=== PATIENT | female | born 1955 | race Caucasian/White ===

== ENCOUNTER 2018-11-16 22:21 | Inpatient (IN) | payer MEDICARE, MEDICAID ==
[~2018-11-16] VITALS: Ht 160 cm; Wt 84.1 kg
[2018-11-16] MEDS ORDERED: VASOTEC20 MG PO (22:30)
[2018-11-16] MEDS ORDERED: ZOLOFT25 MG PO (22:30)
[2018-11-16 22:53] LABS: BASOPHILS 0.2 % (0-2); EOSINOPHILS 0.1 % (0-7); HEMATOCRIT 27.9 % (36.0-48.0); HEMOGLOBIN 9.2 g/dL (12-16); IMMATURE GRANULOCYTES 0.5 % (0-5); LYMPHOCYTES 12.7 % (15-50); MEAN PLATELET VOLUME 10.8 fL (7.4-10.4); MONOCYTES 9.1 % (2-11); NEUTROPHILS 77.4 % (40-80); PLATELET COUNT 539 10x3/uL (130-400); RBC 3.17 10x6/uL (4.00-5.40); RDW 15.1 % (11.5-14.5); WBC 19.9 10x3/uL (4.8-10.8)
[2018-11-16 23:19] LABS: ALBUMIN 1.8 g/dL (3.4-5.0); ALKALINE PHOSPHATASE 66 U/L (46-116); ALT (SGPT) 19 U/L (10-68); BILIRUBIN - TOTAL 1.01 mg/dL (0.2-1.3); CALC OSMOLALITY 282 mosm/kg (275-300); CARBON DIOXIDE 21.9 mmol/L (21.0-32.0); CHLORIDE - SERUM 107 mmol/L (98-107); CREATININE - SERUM 0.7 mg/dL (0.6-1.3); GLUCOSE 116 mg/dL (74-106); POTASSIUM - SERUM 3.4 mmol/L (3.5-5.1); PROTEIN - SERUM 6.3 g/dL (6.4-8.2); SODIUM 141 mmol/L (136-145); UREA NITROGEN 14 mg/dL (7-18); eGFR NON AFRICAN AMERICAN 89 mL/min (90-120)
[2018-11-16 23:26] LABS: LIPASE 60 U/L (73-393); MAGNESIUM - SERUM 1.6 mg/dL (1.8-2.4); PRO BNP 165 pg/mL (0-125)
[2018-11-16 23:27] LABS: TROPONIN-I < 0.017 ng/mL (0.000-0.060)
[2018-11-16 23:48] VITALS: BP 97/54; BMI 29.1
[2018-11-17] VITALS (26 sets, daily range): BP systolic 80–138; BP diastolic 45–77; BMI 29.0
--- NOTE | 2018-11-17 00:10 | NUR ---
PT'S IV STARTED HAVING SOME SWELLING AROUND SITE, PT DENIED PAIN, IV BECOMING VERY POSTITIONAL, IV D/C AT THIS TIME WITH CATH INTACT. DRESSING PLACED OVER SITE, BLEEDING CONTROLLED AT THIS TIME.
--- NOTE | 2018-11-17 01:36 | NUR ---
IV RESITTED TO RIGHT EJ, BY ER PROVIDER.
[2018-11-17 02:51] LABS: HEMATOCRIT 32.1 % (36.0-48.0); HEMOGLOBIN 10.4 g/dL (12-16); MCHC 32.4 g/dL (31.0-37.0); MCV 89.4 fL (80.0-100.0); MEAN PLATELET VOLUME 11.3 fL (7.4-10.4); PLATELET COUNT 599 10x3/uL (130-400); RBC 3.59 10x6/uL (4.00-5.40); RDW 15.3 % (11.5-14.5); WBC 15.7 10x3/uL (4.8-10.8)
[2018-11-17 03:05] LABS: MAGNESIUM - SERUM 1.6 mg/dL (1.8-2.4); PHOSPHOROUS 2.7 mg/dL (2.5-4.9)
--- NOTE | 2018-11-17 03:16 | NUR ---
PT TAKEN TO CT SCAN
[2018-11-17 03:29] LABS: EOSINOPHILS 3 % (0-7); LYMPHOCYTES 11 % (15-50); MONOCYTES 4 % (2-11); NEUTROPHILS 79 % (40-80); PLATELET ESTIMATE INCREASED; PLATELET MORPHOLOGY GIANT PLTS PRESENT
--- NOTE | 2018-11-17 03:32 | NUR ---
PT BACK FROM CT
--- NOTE | 2018-11-17 05:00 | NUR ---
PT RESTING IN BED, RESP EFFORT LESS LABORED, PT DENIES COMPLAINTS AT THIS TIME. PT ADVISED THAT SHE IS FEELING SOME BETTER
[2018-11-17 09:01] LABS: APTT 26.3 SECONDS (22.8-39.4); INR 1.25 (0.85-1.17); PROTIME 15.2 SECONDS (11.6-15.0)
[2018-11-17 09:15] LABS: D-DIMER-QUANTITATIVE 4.2 ug/mLFEU (0.20-0.54)
--- NOTE | 2018-11-17 11:00 | NUR ---
RESTING AND CONTINUES TO HAVE TACHYPNEA AT 42 BPM, DENIES DISTRESS
--- NOTE | 2018-11-17 13:05 | NUR ---
TO RADIOLOGY FOR PENDING THORACENTESIS, AAO, WITH PERSONNEL X2
--- NOTE | 2018-11-17 14:30 | NUR ---
BACK FROM RADIOLOGY, CT TO LEFT POSTERIOR CHEST, 600 CC PURULENT DRAINAGE TO CONTAINER, VS: BP 101/63, MAP79, 123 HR O26L HF NC, SAT 97%, RESP 47, STATES, SHE FEELS LIKE SHE CAN BREATH A LITTLE BETTER, TEMP 100.1, NOTIFIED CINDY KAHN, NEW ORDERS GIVEN, FOR TEMP OVER 101
--- NOTE | 2018-11-17 15:00 | NUR ---
REASSESSMENT COMPLETED PER FLOWSHEET, 600 CC PURULENT DRAINGAGE TO CT CONTAINER, CONTINUES TO HAVE TACHYPNEA, 37 BPM, NOOTHER ACUTE CHANGE FROM PREVIOUS
--- NOTE | 2018-11-17 15:50 | NUR ---
CATH HOLLY PLACED, INSTILLED IN CT BY TESS WITH RADIOLOGY AND PORT CLOSED
--- NOTE | 2018-11-17 16:09 | NUR ---
SPOUSE AT BEDSIDE, STATUS UPDATED, NO NEEDS AT THIS TIME
--- NOTE | 2018-11-17 16:34 | MORECARE ---
CASE MANAGEMENT DISCHARGE SUMMARY PATIENT: ANY LANDIS UNIT: [id number] ADM DATE: 11/16/18 AGE: 63 : 53 SEX: F ROOM/BED: D.2308 AUTHOR: BRIDGETTE TORRES PHYSICIAN: REFERRING PHYSICIAN: CARLOS ALLISON MD DATE OF SERVICE: 11/17/18 Discharge Plan Patient Name: ANY LANDIS [facility] [facility] 1955 Planned Disposition: Home Anticipated Discharge Date: Discharge Date: Expected LOS: Initial Reviewer: [email or web address] Initial Review Date: 11/16/2018 Generated: 11/17/18 5:34 pm DCPIA - Discharge Planning Initial Assessment Updated by [email or web address]: Rivka Higuera on 11/17/18 4:29 pm * Is the patient Alert and Oriented? Yes * How many steps to enter\exit or inside your home? * PCP VERONIKA BAIRD * Pharmacy [facility] * Preadmission Environment Home with Family * ADLs Independent * Equipment Walker * List name and contact numbers for known caregivers / representatives who currently or will assist patient after discharge: KATHARINE MARSHALL [facility]- [phone] * Verbal permission to speak to the caregivers and representatives has been obtained from the patient. Yes * Community resources currently utilized None * Additional services required to return to the preadmission environment? No * Can the patient safely return to the preadmission environment? Yes * Has this patient been hospitalized within the prior 30 days at any hospital? Yes Patient Name: ANY LANDIS Page [id number] at 1634 All edits/amendments must be made on the electronic document DICTATION DATE: 11/17/18 1634 MIDDLE SCHOOL HISTORY TEACHER: SACHA 11/17/18 1634 RPT#: [id number] DC DATE: STATUS: ADM IN [facility] [address] [place] [address] END OF REPORT
--- NOTE | 2018-11-17 16:45 | MORECARE ---
CASE MANAGEMENT DISCHARGE SUMMARY PATIENT: ANY LANDIS UNIT: [id number] ADM DATE: 11/16/18 AGE: 63 : 53 SEX: F ROOM/BED: D.2308 AUTHOR: MELISSA,DOC PHYSICIAN: REFERRING PHYSICIAN: CRALOS ALLISON MD DATE OF SERVICE: 11/17/18 Discharge Plan Patient Name: ANY LANDIS Facility: [facility]:[place] : 1955 Planned Disposition: Home Anticipated Discharge Date: Discharge Date: Expected LOS: Initial Reviewer: [email or web address] Initial Review Date: 11/16/2018 Generated: 11/17/18 5:45 pm Comments DCP- Discharge Planning Updated by [email or web address]: Rivka Higuera on 11/17/18 3:[address] Patient Name: ANY LANDIS Admission Status: ER Accout number: [id number] Admission Date: 11-16-2018 : 1955 Admission Diagnosis: Attending: CARLOS ALLISON Current LOS: 1 Anticipated DC Date: Planned Disposition: Home Primary Insurance: [facility] [employer] Discharge Planning Comments: CM met with patient and significant other Katharine at bedside after explaining CM role and obtaining verbal consent. Patient lives at home with Katharine and plans to return there upon discharge. Patient feels this would be a safe discharge. Patient states that she has a walker at home but no other medical equipment. Patient states that she doesn't have home health or any other community resources in use prior to admission. Patient denies any discharge needs at this time. Patient states she will have family drive her home upon discharge. CM will continue to follow and assist as needed with discharge planning / needs. Balance Weigher: Rivka Higuera DCPIA - Discharge Planning Initial Assessment Updated by [email or web address]: Rivka Higuera on 11/17/18 4:29 pm * Is the patient Alert and Oriented? Yes * How many steps to enter\exit or inside your home? * PCP VERONIKA BAIRD * Pharmacy [facility] * Preadmission Environment Home with Family * ADLs Independent * Equipment Walker * List name and contact numbers for known caregivers / representatives who currently or will assist patient after discharge: KATHARINE MARSHALL [facility]- [phone] * Verbal permission to speak to the caregivers and representatives has been obtained from the patient. Yes * Community resources currently utilized None * Additional services required to return to the preadmission environment? No * Can the patient safely return to the preadmission environment? Yes * Has this patient been hospitalized within the prior 30 days at any hospital? Yes Last DP export: 11/17/18 3:34 p Patient Name: ANY LANDIS Page 11617 at 1645 All edits/amendments must be made on the electronic document DICTATION DATE: 11/17/181644 MAIL CENSOR: SACHA 11/17/181644 RPT#: [id number] DC DATE: STATUS: ADM IN [facility] [address] [place] [address] END OF REPORT
[2018-11-17 16:46] LABS: PROTEIN - BODY FLUID 4.3 G/DL
--- NOTE | 2018-11-17 16:50 | NUR ---
CT PORT REOPENED AND CT PLACE TO SUCTION PER ORDER
--- NOTE | 2018-11-17 17:35 | NUR ---
16FR RODRIGUEZ PLACED PER ORDER PROCEDURE TOLERATED WITHOUT DIFFICULTY, 700 CC URINE TO CANISTER AND BAG, AFFIXED TO SIDE OF LEG WITH STATLOCK. TOLERATED PROCEDURE WITHOUT DIFFICULTY
[2018-11-17 20:38] LABS: MACROPHAGES BF 6 %; MESOTHELIALS BF 2 %; NEUT - BF 81 %
[2018-11-18] VITALS (23 sets, daily range): BP systolic 103–152; BP diastolic 58–95
--- NOTE | 2018-11-18 01:09 | NUR ---
PRN MORPHINE 1MG ADMINISTERED VIA SIVP PER MD ORDER/PT COMPLAINT OF INCISIONAL PAIN 11/29 ON VPS. ALSO REPOSITIONED FOR COMFORT SUPPORT WITH PILLOWS, DRAINAGE FROM CT REMAINS PURULENT AND THICK.
[2018-11-18 03:28] LABS: BASOPHILS 0.1 % (0-2); EOSINOPHILS 0 % (0-7); HEMATOCRIT 26.9 % (36.0-48.0); HEMOGLOBIN 8.7 g/dL (12-16); IMMATURE GRANULOCYTES 0.8 % (0-5); LYMPHOCYTES 12.7 % (15-50); MCH 28.2 pg (26.0-34.0); MCHC 32.3 g/dL (31.0-37.0); MCV 87.3 fL (80.0-100.0); MEAN PLATELET VOLUME 10.8 fL (7.4-10.4); MONOCYTES 10.9 % (2-11); NEUTROPHILS 75.5 % (40-80); PLATELET COUNT 388 10x3/uL (130-400); RBC 3.08 10x6/uL (4.00-5.40); RDW 15.3 % (11.5-14.5); WBC 21.1 10x3/uL (4.8-10.8)
--- NOTE | 2018-11-18 03:30 | NUR ---
REASSESSMENT PER FLOWSHEET, NO ACUTE CHANGES, VSS, POSITIONED FOR COMFORT SUPPORTED WITH PILLOWS.
[2018-11-18 03:41] LABS: ALBUMIN 1.4 g/dL (3.4-5.0); ALKALINE PHOSPHATASE 50 U/L (46-116); ALT (SGPT) 18 U/L (10-68); BILIRUBIN - TOTAL 0.79 mg/dL (0.2-1.3); CALCIUM 8.2 mg/dL (8.5-10.1); CARBON DIOXIDE 24.1 mmol/L (21.0-32.0); CHLORIDE - SERUM 105 mmol/L (98-107); GLUCOSE 155 mg/dL (74-106); LDH 153 U/L (81-234); MAGNESIUM - SERUM 1.8 mg/dL (1.8-2.4); POTASSIUM - SERUM 3.3 mmol/L (3.5-5.1); PROTEIN - SERUM 5.6 g/dL (6.4-8.2); SODIUM 137 mmol/L (136-145)
[2018-11-18 03:51] LABS: CALC OSMOLALITY 275 mosm/kg (275-300); CREATININE - SERUM 0.5 mg/dL (0.6-1.3); PHOSPHOROUS 1.7 mg/dL (2.5-4.9); UREA NITROGEN 10 mg/dL (7-18); eGFR NON AFRICAN AMERICAN > 90 mL/min (90-120)
[2018-11-18 05:23] LABS: APPEARANCE HAZY (CLEAR); COLOR YELLOW (YELLOW); SPECIFIC GRAVITY 1.015 (1.005-1.020)
[2018-11-18 05:24] LABS: BACTERIA NONE SEEN /hpf (NONE SEEN); BILIRUBIN NEGATIVE (NEGATIVE); EPITHELIAL CELLS NSEEN /hpf (0-5); GLUCOSE NEGATIVE (NEGATIVE); KETONE SMALL mg/dL (NEGATIVE); NITRITE NEGATIVE (NEGATIVE); PROTEIN NEGATIVE (NEGATIVE); RED CELLS - URINE 0-5 /hpf (0-5); WHITE CELLS - URINE RARE /hpf (0-5)
--- NOTE | 2018-11-18 05:24 | NUR ---
NO VISITORS PRESENT AT THIS TIME, PT RESTING WITH EYES CLOSED.
--- NOTE | 2018-11-18 09:44 | NUR ---
CL BREAKFAST TRAY SERVED AND PT TOOK IN 100% OF CL WITH OUT DIFFICULTY. CO/O PAIN TO CHEST TUBE SITE AND REPORTS CHEST DISCOMFORT DUE TO COUGH. MS GIVEN ORDERED WITH ADEQUATE R/O PAIN VERB BY PT.
--- NOTE | 2018-11-18 13:37 | NUR ---
ASSISTED OOB, BATH AND LINENS CHANGED.
[2018-11-18 19:07] LABS: ACID FAST SMEAR Negative (()); AFB SPECIMEN PROCESSING Concentration (())
[2018-11-19] VITALS (25 sets, daily range): BP systolic 95–127; BP diastolic 52–86
[2018-11-19 03:30] LABS: HEMATOCRIT 26.4 % (36.0-48.0); HEMOGLOBIN 8.5 g/dL (12-16); MCH 28.2 pg (26.0-34.0); MCHC 32.2 g/dL (31.0-37.0); MCV 87.7 fL (80.0-100.0); MEAN PLATELET VOLUME 10.8 fL (7.4-10.4); PLATELET COUNT 495 10x3/uL (130-400); RBC 3.01 10x6/uL (4.00-5.40); RDW 15.6 % (11.5-14.5); WBC 24.2 10x3/uL (4.8-10.8)
--- NOTE | 2018-11-19 03:36 | NUR ---
DR CARCAMO CALLED REGARDING PT RHYTHM CHANGE, CURRENTLY ATRIAL FIB IN THE 170'S, ORDERS RECIEVED.
[2018-11-19 03:55] LABS: EOSINOPHILS 1 % (0-7); LYMPHOCYTES 14 % (15-50); MONOCYTES 8 % (2-11); NEUTROPHILS 73 % (40-80); PLATELET ESTIMATE INCREASED; PLATELET MORPHOLOGY GIANT PLTS PRESENT
[2018-11-19 03:56] LABS: ALBUMIN 1.4 g/dL (3.4-5.0); ALKALINE PHOSPHATASE 51 U/L (46-116); BILIRUBIN - TOTAL 0.66 mg/dL (0.2-1.3); CALCIUM 8.1 mg/dL (8.5-10.1); CARBON DIOXIDE 25.3 mmol/L (21.0-32.0); CHLORIDE - SERUM 103 mmol/L (98-107); CREATININE - SERUM 0.6 mg/dL (0.6-1.3); GLUCOSE 111 mg/dL (74-106); MAGNESIUM - SERUM 1.8 mg/dL (1.8-2.4); PHOSPHOROUS 2.1 mg/dL (2.5-4.9); PROTEIN - SERUM 5.3 g/dL (6.4-8.2); SODIUM 135 mmol/L (136-145); VANCOMYCIN - TROUGH 12.5 ug/mL (10.0-20.0); eGFR NON AFRICAN AMERICAN > 90 mL/min (90-120)
[2018-11-19 03:57] LABS: CALC OSMOLALITY 267 mosm/kg (275-300); UREA NITROGEN 4 mg/dL (7-18)
[2018-11-19 03:58] LABS: ALT (SGPT) 25 U/L (10-68); POTASSIUM - SERUM 2.8 mmol/L (3.5-5.1)
[2018-11-19 04:25] LABS: THYROID STIMULATING HORMONE 2.15 uIU/mL (0.36-3.74)
[2018-11-19 04:26] LABS: TROPONIN-I < 0.017 ng/mL (0.000-0.060)
--- NOTE | 2018-11-19 08:36 | NUR ---
AFIB RVR WITH PLACING PT ON BED DICKSON. HR 140 TO 160. EKG SHOWS AFIV RVR. PAGED DR CARCAMO, REC'D CALL BACK. CARDIZEM GTT RATE CHANGED FROM 10 TO 15MG/H.
[2018-11-19 11:07] LABS: IMMUNOGLOBULIN A 243 mg/dL (87-352); IMMUNOGLOBULIN G 1118 mg/dL (700-1600)
--- NOTE | 2018-11-19 11:19 | NUR ---
DR KIM NOTIFIED OF CONSULT. DR KIM HERE ON ROUNDS. DR CARCAMO HERE WELL.
--- NOTE | 2018-11-19 13:33 | NUR ---
NSR ON CM. VSS. CT CANNISTER FULL. CHANGED CT THORACEAL CHAMBER CANNISTER PER STERAL TECH. PT JOSIAH WELL.
--- NOTE | 2018-11-19 18:02 | NUR ---
KCL REPLACED PER ELECTROLYTE PROTOCOL.
--- NOTE | 2018-11-19 19:00 | NUR ---
RECIEVED IN BED RESTING WITH EYES OPEN. STATES PAIN IN UPPER ABDOMEN AT A 4 AT THIS TIME. IN GOOD SPIRITS. CHEST TUBE INTACT. IV INFUSING. CALL LIGHT IN REACH.
--- NOTE | 2018-11-19 23:34 | NUR ---
RESTING IN BED WITH EYES CLOSED. NO SIGNS OF DISTRESS. IV INFUSING. CALL LIGHT IN REACH.
[2018-11-20] VITALS (23 sets, daily range): BP systolic 110–144; BP diastolic 44–90
--- NOTE | 2018-11-20 03:31 | NUR ---
RESTING IN BED WITH EYES CLOSED. NO SIGNS OF DISTRESS. CALL LIGHT IN REACH.
[2018-11-20 03:50] LABS: BASOPHILS 0.2 % (0-2); EOSINOPHILS 0.6 % (0-7); HEMATOCRIT 27.9 % (36.0-48.0); IMMATURE GRANULOCYTES 1.7 % (0-5); LYMPHOCYTES 9.9 % (15-50); MCH 28.1 pg (26.0-34.0); MCHC 32.3 g/dL (31.0-37.0); MCV 87.2 fL (80.0-100.0); MEAN PLATELET VOLUME 10.8 fL (7.4-10.4); MONOCYTES 8.2 % (2-11); NEUTROPHILS 79.4 % (40-80); PLATELET COUNT 568 10x3/uL (130-400); RDW 15.5 % (11.5-14.5)
[2018-11-20 04:07] LABS: ALBUMIN 1.7 g/dL (3.4-5.0); ALKALINE PHOSPHATASE 65 U/L (46-116); BILIRUBIN - TOTAL 0.79 mg/dL (0.2-1.3); CALC OSMOLALITY 268 mosm/kg (275-300); CALCIUM 8.2 mg/dL (8.5-10.1); CARBON DIOXIDE 28.1 mmol/L (21.0-32.0); CHLORIDE - SERUM 103 mmol/L (98-107); GLUCOSE 104 mg/dL (74-106); MAGNESIUM - SERUM 1.7 mg/dL (1.8-2.4); PHOSPHOROUS 2.4 mg/dL (2.5-4.9); POTASSIUM - SERUM 3.6 mmol/L (3.5-5.1); PROTEIN - SERUM 5.4 g/dL (6.4-8.2); SODIUM 136 mmol/L (136-145); UREA NITROGEN 4 mg/dL (7-18)
[2018-11-20 04:25] LABS: ALT (SGPT) 62 U/L (10-68); CREATININE - SERUM 0.4 mg/dL (0.6-1.3); eGFR NON AFRICAN AMERICAN > 90 mL/min (90-120)
--- NOTE | 2018-11-20 04:53 | NUR ---
RESTING IN BED WITH EYES CLOSED. IV INFUSING. NO SIGNS OF DISTRESS. CALL LIGHT IN REACH
--- NOTE | 2018-11-20 06:26 | NUR ---
RESTING IN BED WITH EYES OPEN. DENIES PAIN AT THIS TIME. IV INFUSING. CALL LIGHT IN REACH
--- NOTE | 2018-11-20 07:00 | NUR ---
PATIENT ALERT AND ORIENTED. CHEST TUBE WNL. ORAL CARE PROVIDED AT THIS TIME. PATIENT AFEBRILE. ASSESSMENT COMPLETED. VSS. PATIENT REPORTED NAUSEA. WILL CONTINUE TO MONITOR
--- NOTE | 2018-11-20 07:30 | NUR ---
DECREASE CARDIZIEM GTT PER DR. KIM
--- NOTE | 2018-11-20 08:45 | NUR ---
PATIENT TAKEN TO CT.
--- NOTE | 2018-11-20 09:00 | NUR ---
PATIENT REFUSED CHG BATH AT TIME DUE TO PAIN.
--- NOTE | 2018-11-20 09:43 | NUR ---
NUTRITION F/U PT NPO FOR TEST. STATES SHE IS HUNGRY AND WILL BE READY TO EAT WHEN DIET RESUMED. WILL CONTINUE TO MONITOR PO INTAKE, PT PROGRESS. RD FOLLOWING
--- NOTE | 2018-11-20 09:50 | CN ---
PATIENT NAME:ANY AREVALO MEDICAL RECORD: [id number] : 51 LOCATION:[id number] ADMIT DATE: 11/16/18 ACCOUNT: [id number] CONSULTING PHYSICIAN: FLAVIO KIM MD REFERRING PHYSICIAN: CARLOS ALLISON MD DATE OF CONSULTATION: 11/19/2018 CARDIOLOGY CONSULT DIAGNOSES: 1. Atrial fibrillation. 2. Tachycardia. 3. Hypertension. 4. Pneumonia. 5. Shortness of breath and dyspnea on exertion. HISTORY OF PRESENT ILLNESS: Mrs. Arevalo presents from [facility] with shortness of breath and dyspnea on exertion, found to have left lower lobe pneumonia. Initially, she was in sinus rhythm. She does not have history of atrial fibrillation. She is now in atrial fibrillation with rapid ventricular response, heart rates in the 130s. PHYSICAL EXAMINATION: GENERAL APPEARANCE: Well-nourished, well-developed, appears stated age. Level of distress, comfortable. PSYCHIATRIC: Mental status, alert, normal affect. Orientation, oriented to time, place and person. EYES: Lids and conjunctiva, noninjected. No discharge, no pallor. ENT: Lips, teeth, gums, normal dentition. Oropharynx, no cyanosis, no pallor. NECK: Carotid arteries, bilateral normal upstroke, no bruits, no thrills. JUGULAR VEINS: No jugular venous pressure or distention. CERVICAL LYMPH NODES: Nontender, nonenlarged. THYROID: Not enlarged. Nontender. No nodules. LUNGS: Respiratory effort, unlabored. CHEST: Normal curvature. No thoracic deformity. No chest wall tenderness. Percussion, resonant. Auscultation, clear. No wheezes, no rales, no rhonchi. CARDIOVASCULAR: Precordial exam, nondisplaced. No heaves or pericardial thrills. Rate and rhythm, regular. Heart sounds, normal S1, normal S2. No S3, no gallop, no rub. Systolic murmur, not heard. Diastolic murmur, not heard. EXTREMITIES: No cyanosis, no edema. Peripheral pulses, full and equal in all extremities, except as noted. No bruits appreciated. ABDOMEN: Soft, nondistended. Normal aorta. No bruit. Nontender. No masses. Liver, nontender, no hepatomegaly. Spleen, nontender, no splenomegaly. MUSCULOSKELETAL: No joint tenderness. No joint swelling. No erythema. NEUROLOGICAL: Normal gait, normal strength, normal tone. SKIN: Warm and dry. OVERALL IMPRESSION: Atrial fibrillation with rapid ventricular response. At this time, we will start her on sotalol 80 mg b.i.d. and get an echocardiogram. Further care depends upon results with the sotalol. TRANSINT:[id number] Voice Confirmation ID: [id number] DOCUMENT ID: [id number] CONSULT REPORT [id number] ANY AREVALO, FLAVIO CELIS at 0950 CC: [id number] DICTATION DATE: 11/19/18 1118 CLAIMS ADJUSTER SUPERVISOR: 11/19/18 1738 ADM IN [facility] [address] [place] [id number]
--- NOTE | 2018-11-20 10:57 | NUR ---
DR CARCAMO AT BEDSIDE. UPDATE GIVEN.
--- NOTE | 2018-11-20 13:00 | NUR ---
PATIENT RESTING. VSS. CALL LIGHT WITHIN REACH. WILL CONTINUE TO MONITOR.
--- NOTE | 2018-11-20 13:00 | NUR ---
PATIENT HAD 1 BM. PATIENT RESTING. VSS. WILL CONTINUE TO MONITOR.
--- NOTE | 2018-11-20 15:00 | NUR ---
PATIENT ON PHONE WITH FAMILY. MUNIR SET UP PASSWORD TO BE "PASSWORD"
--- NOTE | 2018-11-20 17:00 | NUR ---
PATIENT ON PHONE WITH FAMILY. VSS. WILL CONTINUE TO MONIOTR. CALL LIGHT WITHIN REACH.
[2018-11-20 17:08] LABS: FUNGUS STAIN Final report (())
--- NOTE | 2018-11-20 22:18 | NUR ---
PATIENT ALERT, ORIENTED, PLEASANT, VOICES NEEDS, NO DISTRESS
[2018-11-21] VITALS (22 sets, daily range): BP systolic 113–151; BP diastolic 70–102; Ht 160 cm; Wt 84.1 kg
[2018-11-21 04:50] LABS: BASOPHILS 0.2 % (0-2); EOSINOPHILS 0.6 % (0-7); HEMATOCRIT 28.1 % (36.0-48.0); HEMOGLOBIN 9.3 g/dL (12-16); IMMATURE GRANULOCYTES 3.7 % (0-5); LYMPHOCYTES 11.8 % (15-50); MCH 28.4 pg (26.0-34.0); MCHC 33.1 g/dL (31.0-37.0); MCV 85.7 fL (80.0-100.0); MEAN PLATELET VOLUME 10.6 fL (7.4-10.4); MONOCYTES 10.3 % (2-11); NEUTROPHILS 73.4 % (40-80); PLATELET COUNT 616 10x3/uL (130-400); RBC 3.28 10x6/uL (4.00-5.40); RDW 15.4 % (11.5-14.5); WBC 15.9 10x3/uL (4.8-10.8)
[2018-11-21 05:07] LABS: ALBUMIN 1.7 g/dL (3.4-5.0); ALKALINE PHOSPHATASE 77 U/L (46-116); BILIRUBIN - TOTAL 0.53 mg/dL (0.2-1.3); CALC OSMOLALITY 269 mosm/kg (275-300); CALCIUM 7.9 mg/dL (8.5-10.1); CARBON DIOXIDE 27.5 mmol/L (21.0-32.0); CHLORIDE - SERUM 102 mmol/L (98-107); CREATININE - SERUM 0.5 mg/dL (0.6-1.3); GLUCOSE 110 mg/dL (74-106); MAGNESIUM - SERUM 1.8 mg/dL (1.8-2.4); PHOSPHOROUS 2.7 mg/dL (2.5-4.9); PROTEIN - SERUM 5.4 g/dL (6.4-8.2); SODIUM 136 mmol/L (136-145); UREA NITROGEN 5 mg/dL (7-18); eGFR NON AFRICAN AMERICAN > 90 mL/min (90-120)
[2018-11-21 05:09] LABS: ALT (SGPT) 88 U/L (10-68)
--- NOTE | 2018-11-21 06:05 | NUR ---
pt alert with no c/o at this time, vss, iv vanc infusing
--- NOTE | 2018-11-21 07:19 | NUR ---
PATIENT RESTING. VSS. REPORT RECIEVED FROM BENNETT. WILL CONTINUE TO MONITOR POTASSIUM. CALL LIGHT WITHIN REACH. BED LOW AND LOCKED. ASSESSMENT COMPLETED.
--- NOTE | 2018-11-21 09:26 | NUR ---
DR. DUONG CONSULT CALLED TO [facility] AT THIS TIME, NO NEW ORDERS RECIEVED
--- NOTE | 2018-11-21 10:10 | NUR ---
DR DUONG AT BEDSIDE UPDATE GIVEN
--- NOTE | 2018-11-21 13:00 | NUR ---
PATIENT REFUSED BATH AT THIS TIME. WILL CONTINUE TO MONITOR
--- NOTE | 2018-11-21 15:00 | NUR ---
patient resting. vss. no changes noted. will continue to monitor
--- NOTE | 2018-11-21 16:11 | NUR ---
PATIENT BATHED HERSELF AT THIS TIME.
--- NOTE | 2018-11-21 17:00 | NUR ---
patient resting. family at bedside. vss. will continue to monitor
--- NOTE | 2018-11-21 19:20 | NUR ---
PT ALERT, ORIENTED WATCHING TV, MEDICATED FOR PAIN
--- NOTE | 2018-11-21 21:30 | NUR ---
PATIENT ALERT WITH NO C/O
--- NOTE | 2018-11-21 23:40 | NUR ---
pt c/o SOB, SPO2@92%, INCREASED O2 TO 3L VIA N/C, MEDICATED FOR PAIN
[2018-11-22] VITALS (24 sets, daily range): BP systolic 125–181; BP diastolic 69–94
--- NOTE | 2018-11-22 02:05 | NUR ---
PATIENT SLEEPING WITH NO DISTRESS, VITALS STABLE
--- NOTE | 2018-11-22 03:00 | NUR ---
pt remains asleep, vitals stable, cont with bilat crackles in upper lobes
[2018-11-22 05:02] LABS: ALKALINE PHOSPHATASE 64 U/L (46-116); BILIRUBIN - TOTAL 0.51 mg/dL (0.2-1.3); CALC OSMOLALITY 270 mosm/kg (275-300); CALCIUM 7.9 mg/dL (8.5-10.1); CARBON DIOXIDE 29.4 mmol/L (21.0-32.0); CHLORIDE - SERUM 102 mmol/L (98-107); CREATININE - SERUM 0.5 mg/dL (0.6-1.3); GLUCOSE 104 mg/dL (74-106); MAGNESIUM - SERUM 1.8 mg/dL (1.8-2.4); PHOSPHOROUS 2.7 mg/dL (2.5-4.9); POTASSIUM - SERUM 3.7 mmol/L (3.5-5.1); PROTEIN - SERUM 5.7 g/dL (6.4-8.2); SODIUM 137 mmol/L (136-145); UREA NITROGEN 5 mg/dL (7-18); eGFR NON AFRICAN AMERICAN > 90 mL/min (90-120)
[2018-11-22 05:14] LABS: ALT (SGPT) 65 U/L (10-68)
--- NOTE | 2018-11-22 05:15 | NUR ---
pt awake with no c/o
[2018-11-22 05:30] LABS: BASOPHILS 0.3 % (0-2); EOSINOPHILS 0.8 % (0-7); HEMATOCRIT 28.3 % (36.0-48.0); HEMOGLOBIN 9.3 g/dL (12-16); IMMATURE GRANULOCYTES 3.6 % (0-5); LYMPHOCYTES 13.4 % (15-50); MCH 28.3 pg (26.0-34.0); MCHC 32.9 g/dL (31.0-37.0); MEAN PLATELET VOLUME 10.8 fL (7.4-10.4); MONOCYTES 10.3 % (2-11); NEUTROPHILS 71.6 % (40-80); PLATELET COUNT 633 10x3/uL (130-400); RBC 3.29 10x6/uL (4.00-5.40); RDW 15.6 % (11.5-14.5); WBC 17.3 10x3/uL (4.8-10.8)
--- NOTE | 2018-11-22 06:17 | NUR ---
pt arouses easily, has nonproductive cough with bilat crackles, o2 remains at 3liters via n/c, vitals stable
--- NOTE | 2018-11-22 07:09 | NUR ---
RESPIRATORY AT BEDSIDE. REPORT RECIEVED FROM BENNETT. LEIGHA. PATIENT WBC HAS INCREASED. NO OTHER CHANGES NOTED. ASSESMENT COMPLTED AT THIS TIME. CALL LIGHT WITHIN REACH. WILL CONTINUE TO MONITOR
--- NOTE | 2018-11-22 09:00 | NUR ---
patient resting. complete linen change provided. will continue to monitor
--- NOTE | 2018-11-22 09:38 | NUR ---
NUTRITION F/U PT TOLERATING REG DIET. NURSING REPORTS GOOD PO INTAKE RECENT MEALS. WILL CONTINUE TO PROVIDE DIET, HONOR FOOD PREFERENCES. RD FOLLOWING
--- NOTE | 2018-11-22 11:00 | NUR ---
DR CARCAMO AT [facility]. UPDATE GIVEN.
--- NOTE | 2018-11-22 11:35 | NUR ---
PATIENT ON CHAIR. VSS. WILL CONTINUE TO MONITOR
--- NOTE | 2018-11-22 13:08 | NUR ---
physical thearpy at bedside. patient still in chair. vss. will continue to monitor
[2018-11-22 14:00] LABS: HEMATOCRIT 29.7 % (36.0-48.0); HEMOGLOBIN 9.6 g/dL (12-16); MCH 28.2 pg (26.0-34.0); MCHC 32.3 g/dL (31.0-37.0); MCV 87.4 fL (80.0-100.0); MEAN PLATELET VOLUME 10.3 fL (7.4-10.4); RBC 3.4 10x6/uL (4.00-5.40); RDW 15.9 % (11.5-14.5); WBC 16.5 10x3/uL (4.8-10.8)
--- NOTE | 2018-11-22 14:07 | NUR ---
Rehab Note- Acute Inpatient Rehab prescreen order received. The patient has [facility] insurance and will require a PreAuth prior to an acute rehab stay. SHe has a pending OT Eval & didn't do much with her PT Eval- these will be needed for her PreAuth. SHe also seems to continue to have an acute workup at this time w/ CT & CT trade out. Will continue to follow the patient at this time. Thank you for this referral! Rose Nunes RN Clinical Liaison, [facility]
[2018-11-22 14:10] LABS: APTT 34.5 SECONDS (22.8-39.4); INR 1.13 (0.85-1.17)
[2018-11-22 14:15] LABS: ALBUMIN 2.2 g/dL (3.4-5.0); ALKALINE PHOSPHATASE 70 U/L (46-116); ALT (SGPT) 64 U/L (10-68); BILIRUBIN - TOTAL 0.51 mg/dL (0.2-1.3); CALC OSMOLALITY 272 mosm/kg (275-300); CALCIUM 7.8 mg/dL (8.5-10.1); CARBON DIOXIDE 31.6 mmol/L (21.0-32.0); CHLORIDE - SERUM 102 mmol/L (98-107); CREATININE - SERUM 0.5 mg/dL (0.6-1.3); GLUCOSE 117 mg/dL (74-106); POTASSIUM - SERUM 3.6 mmol/L (3.5-5.1); PROTEIN - SERUM 6.2 g/dL (6.4-8.2); SODIUM 137 mmol/L (136-145); UREA NITROGEN 6 mg/dL (7-18); eGFR NON AFRICAN AMERICAN > 90 mL/min (90-120)
--- NOTE | 2018-11-22 15:00 | NUR ---
CHG BATH GIVEN. RODRIGUEZ CARE PERFORMED. PATIENT BACK IN BED. VSS. WILL CONTINUE TO MONITOR
--- NOTE | 2018-11-22 17:00 | NUR ---
PATIENT SITTING ON EDGE OF BED EATING DINNER. VSS. NO CHANGES NOTED. CONSETS OBTAINED. WILL CONTINUE TO MONITOR
--- NOTE | 2018-11-22 19:02 | NUR ---
midline dressing changed at this time
--- NOTE | 2018-11-22 20:00 | NUR ---
PT IS AWAKE AND ALERT. DENIES PAIN. DO SIGN OF DISTRESS. L CHEST TUBE TO 20 CM SUCTION. NO LEAK NOTED. PURLENT DRAINAGE NOTED. DENIES NEEDS
[2018-11-23] VITALS (22 sets, daily range): BP systolic 112–153; BP diastolic 37–82
[2018-11-23 04:59] LABS: APTT 35.5 SECONDS (22.8-39.4); INR 1.18 (0.85-1.17); PROTIME 14.5 SECONDS (11.6-15.0)
[2018-11-23 05:05] LABS: ALBUMIN 2.1 g/dL (3.4-5.0); ALKALINE PHOSPHATASE 61 U/L (46-116); ALT (SGPT) 49 U/L (10-68); BILIRUBIN - TOTAL 0.58 mg/dL (0.2-1.3); CALC OSMOLALITY 269 mosm/kg (275-300); CALCIUM 8.3 mg/dL (8.5-10.1); CARBON DIOXIDE 28.4 mmol/L (21.0-32.0); CHLORIDE - SERUM 102 mmol/L (98-107); CREATININE - SERUM 0.5 mg/dL (0.6-1.3); GLUCOSE 103 mg/dL (74-106); POTASSIUM - SERUM 3.7 mmol/L (3.5-5.1); PROTEIN - SERUM 5.8 g/dL (6.4-8.2); SODIUM 136 mmol/L (136-145); UREA NITROGEN 6 mg/dL (7-18); eGFR NON AFRICAN AMERICAN > 90 mL/min (90-120)
[2018-11-23 05:09] LABS: BASOPHILS 0.3 % (0-2); EOSINOPHILS 1.7 % (0-7); HEMATOCRIT 27.1 % (36.0-48.0); HEMOGLOBIN 8.9 g/dL (12-16); IMMATURE GRANULOCYTES 2.9 % (0-5); LYMPHOCYTES 17.1 % (15-50); MCH 28.1 pg (26.0-34.0); MCHC 32.8 g/dL (31.0-37.0); MCV 85.5 fL (80.0-100.0); MEAN PLATELET VOLUME 10.4 fL (7.4-10.4); PLATELET COUNT 597 10x3/uL (130-400); RBC 3.17 10x6/uL (4.00-5.40); RDW 15.8 % (11.5-14.5); WBC 14.1 10x3/uL (4.8-10.8)
--- NOTE | 2018-11-23 06:15 | NUR ---
TO RADIOLOGY FOR PA/LAT VIA WHEELCHAIR.
--- NOTE | 2018-11-23 07:00 | NUR ---
REPORT RECEVIED FROM THE OFF GOING RN. SEE ASSESSMENT IN THE PTS FLOW SHEET. VSS AT THIS TIME. CALL LIGHT IN [facility]. WILL CONT POC.
--- NOTE | 2018-11-23 10:11 | NUR ---
PHYSICAL THEARPY ASSISTED THE PT OOB AND INTO THE BEDSIDE CHAIR. TOLERAETD WELL. VSS. WILL CONT POC.
--- NOTE | 2018-11-23 11:48 | NUR ---
OT NOTE: PT DOING WELL; CONCERNED ABOUT SURGERY SHE IS HAVING TOMORROW. ABLE TO PERFORM ALL GROOMING, FEEDING, AND UE DRESSING WITH SET UP; BED MOB WITH SPV; TRANSFERS WITH MIN ASSIST FROM BED TO CHAIR. ROSEY LLAMAS, OTR/L
[2018-11-23 12:08] LABS: IMMUNOGLOBULIN E 41 IU/mL (6-495)
--- NOTE | 2018-11-23 14:00 | NUR ---
PT ASSISTED HER SELF BACK TO BED. VSS AT THIS TIME. NO C/O PAIN. CALL LIGHT IN REACH. WILL CONT POC.
--- NOTE | 2018-11-23 18:32 | NUR ---
OT NOTE; PT COMPLETED BED MOB TASKS WITH SBA. THANK YOU,JAKUB GARCIA
--- NOTE | 2018-11-23 21:00 | NUR ---
PT ALERT & ORIENTED. VISITORS LEFT FOR NIGHT. GAVE SCHEDULED MEDS. PT C/O CHEST AND COUGHING PAIN 12/30. GAVE MORPHINE 1 MG IV PUSH. ASSESSMENT COMPLETE PER FLOW-SHEET. NO OTHER NEEDS. WILL CONTINUE TO MONITOR.
[2018-11-24] VITALS (24 sets, daily range): BP systolic 115–150; BP diastolic 49–83
--- NOTE | 2018-11-24 09:43 | NUR ---
NUTRITION F/U CHART REVIEWED. PT CURRENTLY NPO FOR PROCEDURE. WILL PROVIDE DIET WHEN RESUMED. ASSIST WITH NUTRITION SUPPORT IF NEEDED. RD FOLLOWING
--- NOTE | 2018-11-24 11:18 | NUR ---
DR LUONG CONSULTED, TO OR TO VIEW.
[2018-11-24 13:08] LABS: FUNGUS MYCOLOGY CULTURE Preliminary report (())
--- NOTE | 2018-11-24 14:22 | NUR ---
AGRICULTURAL RESEARCHER BY TO GET BLOOD. PT HAVING BLOOD INFUSED AT THIS TIME. ASKED THEM TO COME BACK AT COMPLETION OF ADMINISTRATION.
--- NOTE | 2018-11-24 14:36 | OP ---
PATIENT NAME: ANY LANDIS MEDICAL RECORD: [id number] :51 LOCATION:[facility] D.2304 ADMISSION DATE:11/16/18 SURGEON: DAVIS REMY MD DATE OF OPERATION: 11/24/2018 SURGEON: Davis Remy MD OPERATIONS AND MAINTENANCE SUPERVISOR: Jono Parsons OPERATION PERFORMED: 1. Left thoracoscopy. 2. Left thoracotomy with total decortication and lysis of intrapleural adhesions. 3. Bronchoscopy. OPERATIVE INDICATION: Empyema. POSTOPERATIVE DIAGNOSES: Empyema and subdiaphragmatic abscess with drainage transdiaphragmatic into the left pleural cavity. ANESTHESIA: Double lumen, general endotracheal anesthesia. ESTIMATED BLOOD LOSS: 400 cc. TRANSFUSIONS: 2 packed red blood cells, 2 FFP, 1 platelets. COMPLICATIONS: None. SPECIMENS: 1. Culture of abscess fluid. 2. Abscess cavity material. 3. Parietal pleura. CONDITION: Critical. DISPOSITION: ICU. OPERATIVE FINDINGS: 1. Thoracoscopy with no open space to see intrapleural. 2. Tube position confirmed with bronchoscopy. 3. Dense intrapleural adhesions requiring a full posterolateral thoracotomy with rib resection and later a second lower incision to remove adhesions from the lower lobe. 4. Discrete 1.5 cm opening in the mid diaphragm with creamy white pus draining through, Dr. Luong of general surgery was consulted intraoperatively, observed this, reviewed the CT scans and discussed the previous findings with the patient and his family as well as with interventional radiology, this area will be observed. It was irrigated with antibiotic fluid prior to closing the chest. 5. Multiple visceral pleural invasions, but good reexpansion of the lung after debridement of the abscess material anteroapically, inferiorly, and medially with no residual infected material and a relatively normal fissure. 6. Bronchoscopy with no endobronchial lesions or mucus plugging. 7. No significant air leak in the operating room after closing the chest. OPERATIVE INDICATION: Empyema with recent history of splenectomy. OPERATIVE REPORT [id number] ANY LANDIS DESCRIPTION OF PROCEDURE: The patient was brought to the operating suite. General anesthesia was obtained, the patient was prepped and draped. Working anteriorly at the midclavicular line at about the sixth interspace, incision was made. Scope was introduced over the superior surface of the rib, but there was no visible area for seeing intrapleural. The bronchoscopy was repeated to ensure tube position. Posterolateral thoracotomy incision was made, taken down through subcutaneous tissue and muscle layers and a portion of the rib was removed. Again, the lung was densely adherent to the chest, so the incision was extended and remaining portion of about the sixth rib was removed. Working superiorly, the abscess cavity seen on the CT scan was entered and then along the lingula, creamy white pus was draining. It was cultured. There was some clotted material posteriorly consistent with a site of previous thrombolytic therapy. Once the lung was freed, some of the parietal pleura was removed as it was loose posteriorly and laterally. Then along the diaphragmatic surface, the lung was densely adherent and abscess cavity was entered and a discrete opening in the diaphragm was encountered. The remainder of the lung was debrided free. Thorough irrigation was undertaken. Hemostasis was assured. Progel was used along air leaks in the lateral aspect of the upper lobe, the lingula, inferior surface of the lower lobe, posteriorly on the lower lobe. Large stitches were placed posteriorly and apically. The chest was then closed by closing the lower thoracotomy with pericostal sutures, the main thoracotomy with 2 muscle layers, subcutaneous and skin clips. The patient returned to the supine positioning, single lumen tube placed, bronchoscopy performed visualizing all lobar and segmental bronchi with no mucus plugging and no endobronchial lesions. The patient to ICU in stable condition. TRANSINT:[id number] Voice Confirmation ID: [id number] DOCUMENT ID: [id number] DAVIS REMY MD at 1436 CC: TABITHA LUONG CHINN, ALBERT J MD and CARLOS ALLISON [id number] DICTATION DATE: 11/24/18 1342 PRECISION PRINTING WORKER: 11/24/18 1358 ADM IN [facility] [address] [facility], [place] [address]
[2018-11-24 15:57] LABS: HEMATOCRIT 30.7 % (36.0-48.0); HEMOGLOBIN 10.1 g/dL (12-16); MCH 27.9 pg (26.0-34.0); MCHC 32.9 g/dL (31.0-37.0); MCV 84.8 fL (80.0-100.0); MEAN PLATELET VOLUME 10.5 fL (7.4-10.4); PLATELET COUNT 420 10x3/uL (130-400); RBC 3.62 10x6/uL (4.00-5.40); RDW 15.8 % (11.5-14.5); WBC 28.1 10x3/uL (4.8-10.8)
[2018-11-24 15:59] LABS: INR 1.16 (0.85-1.17); PROTIME 14.3 SECONDS (11.6-15.0)
[2018-11-24 16:01] LABS: CARBON DIOXIDE 31.9 mmol/L (21.0-32.0); CHLORIDE - SERUM 105 mmol/L (98-107); CREATININE - SERUM 0.6 mg/dL (0.6-1.3); GLUCOSE 124 mg/dL (74-106); SODIUM 140 mmol/L (136-145); eGFR NON AFRICAN AMERICAN > 90 mL/min (90-120)
[2018-11-24 16:02] LABS: CALC OSMOLALITY 278 mosm/kg (275-300); POTASSIUM - SERUM 4.5 mmol/L (3.5-5.1); UREA NITROGEN 10 mg/dL (7-18)
[2018-11-24 16:25] LABS: LYMPHOCYTES 8 % (15-50); NEUTROPHILS 92 % (40-80); PLATELET ESTIMATE NORMAL
--- NOTE | 2018-11-24 19:40 | NUR ---
REPORT REC'D AND CARE ASSUMED, REC'D PT RESTING IN BED ON O2 @ 2LITERS VIA NC, PT AWAKENS TO VERBAL STIMULI, ORIENTED X 4, LDLSCL DRSG CDI WITH D51/2NS WITH 20 KCL @ 50CC/HR, LEFT LATERAL POSTERIOR CHEST INCISION DRSG CDI, LEFT LATERAL CT X 2 TO 20CM H2O SUCTION, NO AIR LEAK NOTED, DRSG CDI, SANGUINOUS DRAINAGE PRESENT IN TUBING, RIGHT RADIAL QUINTEN WITH FLEXION BOARD IN USE, LEVELED AND ZEROED WITH RETURN OF APPROPRIATE WAVEFORM, EPIDURAL TAPED SECURELY TO BACK INFUSING @ 7CC/HR WITH 3.5CC Q15 MINUTE BOLUS AVAILABLE FOR BREAK THROUGH PAIN, TEDS AND SCDS ON, PPP, SR UP X 2, BED IN LOW POSITION, CALL LIGHT IN REACH.
--- NOTE | 2018-11-24 21:30 | NUR ---
SISTER AT , UPDATE GIVEN AND QUESTIONS ANSWERED.
--- NOTE | 2018-11-24 23:00 | NUR ---
REASSESSMENT COMPLETED, PT REPOSITIONED UP IN BED AND ONTO RIGHT SIDE SUPPORTED WITH PILLOWS, PT DENIES FURTHER NEEDS, SR UP X 2, BED IN LOW POSITION, CALL LIGHT IN REACH.
[2018-11-25] VITALS (24 sets, daily range): BP systolic 90–137; BP diastolic 42–90
--- NOTE | 2018-11-25 01:30 | NUR ---
NO CHANGES IN STATUS, VSS, WILL MONITOR CLOSELY FOR CHANGES.
--- NOTE | 2018-11-25 03:00 | NUR ---
REASSESSMENT COMPLETED, PT REPOSITIONED IN BED FOR COMFORT, TOLERATED WELL, EPIDURAL CONTINUES @ 7CC/HR, PT DENIES PAIN OR OTHER NEEDS.
--- NOTE | 2018-11-25 05:30 | NUR ---
CHG BATH AND LINEN CHANGE PROVIDED, DRSG CHANGED TO QUINTEN, SITE LEAKING FLUSH WHEN PIGTAIL PULLED, PT REPOSITIONED FOR COMFORT, FEW ICE CHIPS PROVIDED AT THIS TIME
--- NOTE | 2018-11-25 05:45 | NUR ---
AM LAB DRAWN AND SENT TO LAB
[2018-11-25 06:36] LABS: ALKALINE PHOSPHATASE 47 U/L (46-116); ALT (SGPT) 34 U/L (10-68); BILIRUBIN - TOTAL 0.93 mg/dL (0.2-1.3); CALC OSMOLALITY 278 mosm/kg (275-300); CHLORIDE - SERUM 106 mmol/L (98-107); CREATININE - SERUM 0.5 mg/dL (0.6-1.3); GLUCOSE 111 mg/dL (74-106); MAGNESIUM - SERUM 2.2 mg/dL (1.8-2.4); POTASSIUM - SERUM 4.3 mmol/L (3.5-5.1); PROTEIN - SERUM 5.4 g/dL (6.4-8.2); SODIUM 139 mmol/L (136-145); UREA NITROGEN 12 mg/dL (7-18); eGFR NON AFRICAN AMERICAN > 90 mL/min (90-120)
[2018-11-25 06:38] LABS: HEMATOCRIT 27.9 % (36.0-48.0); HEMOGLOBIN 9.3 g/dL (12-16); MCH 27.8 pg (26.0-34.0); MCHC 33.3 g/dL (31.0-37.0); MCV 83.5 fL (80.0-100.0); MEAN PLATELET VOLUME 10.8 fL (7.4-10.4); PLATELET COUNT 448 10x3/uL (130-400); RBC 3.34 10x6/uL (4.00-5.40); RDW 16.6 % (11.5-14.5); WBC 20.3 10x3/uL (4.8-10.8)
[2018-11-25 07:00] LABS: LYMPHOCYTES 12 % (15-50); MONOCYTES 5 % (2-11); NEUTROPHILS 82 % (40-80); PLATELET ESTIMATE NORMAL
[2018-11-25 07:01] LABS: ANISOCYTOSIS 1+; POLYCHROMASIA 1+
--- NOTE | 2018-11-25 08:04 | NUR ---
PT AWAKE, REPORTS ADEQUATE PAIN CONTROL WITH EPIDURAL. CT L WITH 20CM SUCTION. NO AIR LEAK NOTED.
--- NOTE | 2018-11-25 10:22 | NUR ---
DR IRWIN HERE ON ROUNDS. RT RADIAL ART LINE DCD. REG DIET STARTED.
--- NOTE | 2018-11-25 14:40 | NUR ---
1200 PT SAT PT ON SIDE OF BED. MEAL TRAY SERVED AND PT SAT X 1 HR. 1300- DR WYNNE AT ASSESSED EPIDURAL AND PUMP.
--- NOTE | 2018-11-25 17:10 | NUR ---
TEMP 101.0. DR LUONG HERE. TYLENOL GIVEN AND BC AND UC DONE.
[2018-11-25 17:33] LABS: APPEARANCE CLEAR (CLEAR); BILIRUBIN NEGATIVE (NEGATIVE); COLOR YELLOW (YELLOW); GLUCOSE NEGATIVE (NEGATIVE); KETONE NEGATIVE (NEGATIVE); NITRITE NEGATIVE (NEGATIVE); PROTEIN NEGATIVE (NEGATIVE); UROBILINOGEN NORMAL (NORMAL)
--- NOTE | 2018-11-25 19:30 | NUR ---
REPORT REC'D AND CARE ASSUMED, REC'D PT SITTING UP IN BED VISITING WITH FAMILY, AWAKE, ALERT, ORIENTED X 4, O2 @ 2LITERS VIA NC, LEFT DLSCL DRSG CDI WITH D51/2NS WITH 20KCL @ 50CC/HR DECREASED TO KVO, LEFT LATERAL POSTERIOR CHEST/BACK INCISION, DRSG CDI, LEFT LATERAL CT X 2 TO 20 CM H20 SUCTION, NO AIR LEAK NOTED, DRSG CDI, SEROSAGUINOUS DRAINAGE NOTED IN TUBING, CRITICORE RODRIGUEZ PATENT CLEAR YELLOW URINE, BILAT TEDS AND SCDS, PPP, EPIDURAL TAPED SECURELY TO BACK INFUSING @ 7CC/HR WITH 3.5CC Q15MIN BOLUS, PT DENIES PAIN AT THIS TIME, BED IN LOW POSITION, CALL LIGHT IN REACH.
--- NOTE | 2018-11-25 21:00 | NUR ---
EVENING MEDS GIVEN, PT COMPLAINS OF SLIGHT INCISIONAL DISCOMFORT, RATING A "4" ON 0-10 PAIN SCALE, ENCOURAGED PT TO USE BOLUS BUTTON FOR BREAKTHROUGH PAIN, PT VERBALIZES UNDERSTANDING.KI
--- NOTE | 2018-11-25 23:00 | NUR ---
REASSESSMENT COMPLETED, PT WATCHING TV, TEMP BY CRITICORE 38.4, TYLENOL 650MG GIVEN PO FOR TEMP, APPLE JUICE PROVIDED, LEFT LATERAL CHEST DRSGS REMAIN CDI, EPIDURAL CONTINUES AT 7CC/HR WITH 3.5CC Q15MIN BOLUS AVAILABLE, PT DENIES FURTHER NEEDS, SR UP X 2, CALL LIGHT IN REACH.
[2018-11-26] VITALS (22 sets, daily range): BP systolic 101–124; BP diastolic 52–81
--- NOTE | 2018-11-26 00:30 | NUR ---
ROUTINE MEDS GIVEN ORDERED, PT RESTING IN BED EYES CLOSED, RESP EVEN AND UNLABORED, SBP 95/76, LEVOPHED @ 2MCG/MIN, WILL CONT TO MONITOR.
--- NOTE | 2018-11-26 02:30 | NUR ---
NO CHANGES IN STATUS AT THIS TIME
--- NOTE | 2018-11-26 03:30 | NUR ---
REASSESSMENT COMPLETED, PT RESTING EYES CLOSED, RESP EVEN AND UNLABORED, VSS, PT DENIES PAIN OR NEEDS.
--- NOTE | 2018-11-26 05:30 | NUR ---
AM LAB DRAWN FROM [facility] AND SENT LAB, ICE WATER PROVIDED AND ROUTINE MEDS GIVEN ORDERED, NO VISITORS IN AT THIS TIME, PT DENIES FURTHER NEEDS, CALL LIGHT IN REACH.
[2018-11-26 06:42] LABS: BASOPHILS 0.6 % (0-2); EOSINOPHILS 1.5 % (0-7); HEMATOCRIT 26.6 % (36.0-48.0); HEMOGLOBIN 8.7 g/dL (12-16); LYMPHOCYTES 24.5 % (15-50); MCH 27.5 pg (26.0-34.0); MCHC 32.7 g/dL (31.0-37.0); MCV 84.2 fL (80.0-100.0); MEAN PLATELET VOLUME 10.5 fL (7.4-10.4); MONOCYTES 10.9 % (2-11); NEUTROPHILS 61.5 % (40-80); PLATELET COUNT 447 10x3/uL (130-400); RBC 3.16 10x6/uL (4.00-5.40); RDW 16.6 % (11.5-14.5); WBC 16.3 10x3/uL (4.8-10.8)
[2018-11-26 06:51] LABS: ALBUMIN 1.7 g/dL (3.4-5.0); ALKALINE PHOSPHATASE 47 U/L (46-116); ALT (SGPT) 29 U/L (10-68); BILIRUBIN - TOTAL 0.75 mg/dL (0.2-1.3); CALC OSMOLALITY 275 mosm/kg (275-300); CALCIUM 7.7 mg/dL (8.5-10.1); CHLORIDE - SERUM 105 mmol/L (98-107); CREATININE - SERUM 0.5 mg/dL (0.6-1.3); GLUCOSE 90 mg/dL (74-106); MAGNESIUM - SERUM 1.9 mg/dL (1.8-2.4); POTASSIUM - SERUM 4.1 mmol/L (3.5-5.1); PROTEIN - SERUM 5.1 g/dL (6.4-8.2); SODIUM 139 mmol/L (136-145); eGFR NON AFRICAN AMERICAN > 90 mL/min (90-120)
[2018-11-26 06:52] LABS: UREA NITROGEN 6 mg/dL (7-18)
--- NOTE | 2018-11-26 07:47 | NUR ---
TEMP 99.6. ASST PT TO SIT UP ON SIDE OF BED AND DANGLE ORDERED. CT SECURED. EPIDURAL SECURED. PT DENIES PAIN. BREAFAST TRAY SERVED AND PT FEEDS SELF. CALL LIGHT IN REACH.
--- NOTE | 2018-11-26 16:29 | NUR ---
TEMP 100.1 CRITICORE. TYLENOL GIVEN.
--- NOTE | 2018-11-26 17:21 | NUR ---
DR LUONG HERE ON ROUNDS. OK TO CONTINUE REG DIET.
--- NOTE | 2018-11-26 20:00 | NUR ---
ASSESSMENT COMPLETE PT ALERT ORIENTED FOLLOWS COMMANDS EQUAL STRENGTH. PT DENIES PAIN EPIDURAL COVERING CARE.EPIDURAL INTACT CLEAN AND DRY CM READING SR WITH ALARMS ON AND AUDIBLE. LEFT LATERAL CHEST DRESSING CLEAN DRY AND INTACT CHEST TUBES X2 TO WATERSEAL NO AIR LEAK. VSS CALL LIGHT IN REACH DENIES NEEDS
--- NOTE | 2018-11-26 23:00 | NUR ---
REASSESSMENT MADE SEE FLOWSHEETS VSS. DENIES NEEDS AT THIS TIME. CPOC CALL LIGHT IN REACH
[2018-11-27] VITALS (24 sets, daily range): BP systolic 92–135; BP diastolic 48–81
--- NOTE | 2018-11-27 01:00 | NUR ---
CHECKING ON PT RESTING WITH EYES CLOSED VSS NO DISTRESS NOTED CPOC
--- NOTE | 2018-11-27 03:00 | NUR ---
REASSESSMENT MADE PT DENIES PAIN STATES SHE HAS BEEN ABLE TO REST BETTER TONIGHT. VSS CPOC
--- NOTE | 2018-11-27 06:10 | NUR ---
AM BLOOD DRAWN FROM LEFT SUBCLAVIAN CENTRAL LINE WITH EASE AND FLUSHES EASILY
[2018-11-27 06:44] LABS: BASOPHILS 0.5 % (0-2); EOSINOPHILS 1.7 % (0-7); HEMATOCRIT 28.3 % (36.0-48.0); IMMATURE GRANULOCYTES 1.1 % (0-5); LYMPHOCYTES 25.5 % (15-50); MCH 27.3 pg (26.0-34.0); MCHC 31.8 g/dL (31.0-37.0); MCV 85.8 fL (80.0-100.0); MEAN PLATELET VOLUME 10.4 fL (7.4-10.4); MONOCYTES 10.8 % (2-11); NEUTROPHILS 60.4 % (40-80); PLATELET COUNT 466 10x3/uL (130-400); RDW 16.5 % (11.5-14.5); WBC 16.3 10x3/uL (4.8-10.8)
--- NOTE | 2018-11-27 07:00 | NUR ---
SHIFT ASSESSMENT COMPLETED. PT CARE ASSUMED. MONITORS ON AND WORKING, VITALS STABLE. PT AWAKE AND ALERT, CALL LIGHT WITHIN REACH, SEE FLOW SHEET FOR FURTHER DETIALS. CALL LIGHT WITHIN REACH, WILL CONTINUE TO OBSERVE.
[2018-11-27 07:09] LABS: ALBUMIN 1.8 g/dL (3.4-5.0); ALKALINE PHOSPHATASE 58 U/L (46-116); ALT (SGPT) 25 U/L (10-68); BILIRUBIN - TOTAL 0.68 mg/dL (0.2-1.3); CALC OSMOLALITY 270 mosm/kg (275-300); CALCIUM 8.2 mg/dL (8.5-10.1); CARBON DIOXIDE 31.2 mmol/L (21.0-32.0); CHLORIDE - SERUM 102 mmol/L (98-107); CREATININE - SERUM 0.5 mg/dL (0.6-1.3); GLUCOSE 92 mg/dL (74-106); POTASSIUM - SERUM 4.4 mmol/L (3.5-5.1); PROTEIN - SERUM 5.8 g/dL (6.4-8.2); SODIUM 136 mmol/L (136-145); eGFR NON AFRICAN AMERICAN > 90 mL/min (90-120)
[2018-11-27 07:10] LABS: UREA NITROGEN 10 mg/dL (7-18)
--- NOTE | 2018-11-27 08:57 | NUR ---
Nutrition follow-up: Diet advanced to regular 11/25 and pt is tolerated; po intake ~80% average of last 7 meals Labs reviewed Wt: 192# RDN following.
--- NOTE | 2018-11-27 14:20 | NUR ---
REHAB PRESCREENING Rehab continues to follow. Thank you for this referral! Sarita Watson, MAGNET VALVE ASSEMBLER, Rehab PD
--- NOTE | 2018-11-27 16:00 | NUR ---
EPIDURAL DC'D PER DR PEREZ, VITALS STABLE. CALL LIGHT WITHIN REACH, WILL CONTINUE TO OBSREVE.
--- NOTE | 2018-11-27 19:00 | NUR ---
REPORT RECEIVED, CARE ASSUMED. PT IS RESTING IN BED WATCHING TV AT THIS TIME. PT COMPLAINS OF PAIN OF 9/10, PRN NORCO ALREADY ADMINISTERED, PRN TORADOL GIVEN. WILL MONITOR FOR EFFECTIVENESS. INITIAL ASSESSMENT COMPLETED, SEE FLOWSHEET FOR DETAILS. NO SIGNS OF ACUTE DISTRESS NOTED AT THIS TIME. WILL CONTINUE TO MONITOR.
--- NOTE | 2018-11-27 20:15 | NUR ---
PT REPORTS PAIN IS STILL 9/10. DR REMY CALLED AND NEW ORDERS RECEIVED. WILL MONITOR FOR EFFECTIVENESS.
--- NOTE | 2018-11-27 21:00 | NUR ---
PT IS RESTING IN BED WATCHING TV AT THIS TIME. PT REPORTS PAIN IS IMPROVING AT THIS TIME. NO SIGNS OF ACUTE DISTRESS NOTED AT THIS TIME. WILL CONTINUE TO MONITOR.
--- NOTE | 2018-11-27 23:00 | NUR ---
REASSESSMENT COMPLETED, SEE FLOWSHEET FOR DETAILS. PT IS IN BED WITH EYES CLOSED AT THIS TIME. PT VOICES NO NEEDS. NO SIGNS OF ACUTE DISTRESS. WILL CONTINUE TO MONITOR.
[2018-11-28] VITALS (22 sets, daily range): BP systolic 100–1212; BP diastolic 44–96
--- NOTE | 2018-11-28 01:00 | NUR ---
PT IS IN BED RESTING WITH EYES CLOSED. NO SIGNS OF ACUTE DISTRESS. WILL CONTINUE TO MONITOR.
--- NOTE | 2018-11-28 03:00 | NUR ---
REASSESSMENT COMPLETED, SEE FLOWSHEET FOR DETAILS. PT IS IN BED RESTING WTIH EYES CLOSED AT THIS TIME. PT VOICES NO NEEDS CURRENTLY NO SIGNS OF ACUTE DISTRESS. WILL CONTINUE TO MONITOR.
--- NOTE | 2018-11-28 05:00 | NUR ---
PT IS RESTING IN BED WITH EYES CLOSED AT THIS TIME. PT ASSISTED TO X RAY FOR PA AND LAT. NO COMPLAINTS FROM PT REGARDING PAIN AT THIS TIME. NO SIGNS OF ACUTE DISTRESS. WILL CONTINUE TO MONITOR.
[2018-11-28 05:37] LABS: BASOPHILS 0.6 % (0-2); EOSINOPHILS 3.1 % (0-7); HEMATOCRIT 27.5 % (36.0-48.0); HEMOGLOBIN 8.8 g/dL (12-16); IMMATURE GRANULOCYTES 1.3 % (0-5); MCH 27.9 pg (26.0-34.0); MCV 87.3 fL (80.0-100.0); MEAN PLATELET VOLUME 10.7 fL (7.4-10.4); MONOCYTES 15.1 % (2-11); NEUTROPHILS 54.9 % (40-80); PLATELET COUNT 500 10x3/uL (130-400); RBC 3.15 10x6/uL (4.00-5.40); RDW 16.5 % (11.5-14.5); WBC 16.3 10x3/uL (4.8-10.8)
[2018-11-28 05:49] LABS: ALBUMIN 1.7 g/dL (3.4-5.0); ALKALINE PHOSPHATASE 53 U/L (46-116); ALT (SGPT) 23 U/L (10-68); BILIRUBIN - TOTAL 0.72 mg/dL (0.2-1.3); CALC OSMOLALITY 272 mosm/kg (275-300); CALCIUM 8.1 mg/dL (8.5-10.1); CARBON DIOXIDE 33.3 mmol/L (21.0-32.0); CHLORIDE - SERUM 102 mmol/L (98-107); CREATININE - SERUM 0.4 mg/dL (0.6-1.3); GLUCOSE 102 mg/dL (74-106); MAGNESIUM - SERUM 2.1 mg/dL (1.8-2.4); POTASSIUM - SERUM 4.2 mmol/L (3.5-5.1); PROTEIN - SERUM 5.5 g/dL (6.4-8.2); SODIUM 137 mmol/L (136-145); UREA NITROGEN 11 mg/dL (7-18); eGFR NON AFRICAN AMERICAN > 90 mL/min (90-120)
--- NOTE | 2018-11-28 07:20 | NUR ---
REPORT RECEIEVED. ASSESSMENT COMPLETE PER FLOW SHEET. VSS. PT UP OOB TO CHAIR GIVEN BREAKFAST NEEDS MET.
--- NOTE | 2018-11-28 08:35 | NUR ---
DR IRWIN AT BEDSIDE GIVEN UDPATE.
--- NOTE | 2018-11-28 09:38 | NUR ---
CHELSEY WITH DR DUONG AT BEDSIDE GIVEN UDPATE. NEW ORDERS RECEIVED.
--- NOTE | 2018-11-28 10:39 | NUR ---
PHYSICAL THERAPY AT BEDSIDE. GIVEN UPDATE. PT WALKED AROUND UNIT. WILL CONTINUE TO MONITOR
--- NOTE | 2018-11-28 11:17 | NUR ---
REASSESSMENT COMPLETE PER FLOW SHEET. VSS. NO NEW CHANGES WILL CONTINUE TO MONITOR
--- NOTE | 2018-11-28 13:57 | MORECARE ---
CASE MANAGEMENT DISCHARGE SUMMARY PATIENT: ANY LANDIS UNIT: [id number] ADM DATE: 11/16/18 AGE: 63 : 51 SEX: F ROOM/BED: D.2304 AUTHOR: MELISSA,DOC PHYSICIAN: REFERRING PHYSICIAN: CARLOS ALLISON MD DATE OF SERVICE: 11/28/18 Discharge Plan Patient Name: ANY LANDIS Facility: [facility]:[place] : 1955 Planned Disposition: Home Anticipated Discharge Date: Discharge Date: Expected LOS: Initial Reviewer: [email or web address] Initial Review Date: 11/16/2018 Generated: 11/28/18 2:57 pm Comments DCP- Discharge Planning Updated by [id number]: Maria C Ozuna on 11/28/18 12:[address] Patient Name: ANY LANDIS Admission Status: ER Accout number: [id number] Admission Date: 11-16-2018 : 1955 Admission Diagnosis:SEPSIS, UNSPECIFIED ORGANISM Attending: CARLOS ALLISON Current LOS: 12 Anticipated DC Date: Planned Disposition: Home Primary Insurance: [facility] [employer] Discharge Planning Comments: CM MET WITH PATIENT TODAY ABOUT DC PLANNING/NEEDS. I TALKED WITH HER ABOUT HOME HEALTH, REHAB AND USP. SHE REFUSES ANY SERVICES AND STATES SHE HAS PLENTY OF HELP AT HOME. JEREMY FOR REFUSAL SIGNED. WILL ENCOURAGE PATIENT TO ACCEPT SERVICES AT TIME OF DISCHARGE. SHE STILL HAS ONE CHEST TUBE IN AND IS ON 02 NC. STATES IS NOT ON O2 AT HOME. CM TO FOLLOW AND ASSIST NEEDED. It Network Engineer: Maria C Ozuna DCP- Discharge Planning Updated by [email or web address]: Rivka Higuera on 11/17/18 3:[address] Patient Name: ANY LANDIS Admission Status: ER Accout number: [id number] Admission Date: 11-16-2018 : 1955 Admission Diagnosis: Attending: CARLOS ALLISON Current LOS: 1 Anticipated DC Date: Planned Disposition: Home Primary Insurance: [facility] [employer] Discharge Planning Comments: CM met with patient and significant other Katharine at bedside after explaining CM role and obtaining verbal consent. Patient lives at home with Katharine and plans to return there upon discharge. Patient feels this would be a safe discharge. Patient states that she has a walker at home but no other medical equipment. Patient states that she doesn't have home health or any other community resources in use prior to admission. Patient denies any discharge needs at this time. Patient states she will have family drive her home upon discharge. CM will continue to follow and assist as needed with discharge planning / needs. It Network Engineer: Rivka Higuera DCPIA - Discharge Planning Initial Assessment Updated by [id number]: Rivka Higuera on 11/17/18 4:29 pm * Is the patient Alert and Oriented? Yes * How many steps to enter\exit or inside your home? * PCP VERONIKA BAIRD * [facility]acy [facility] * Preadmission Environment Home with Family * ADLs Independent * Equipment Walker * List name and contact numbers for known caregivers / representatives who currently or will assist patient after discharge: KATHARINE MARSHALL - [facility]- [phone] * Verbal permission to speak to the caregivers and representatives has been obtained from the patient. Yes * Community resources currently utilized None * Additional services required to return to the preadmission environment? No * Can the patient safely return to the preadmission environment? Yes * Has this patient been hospitalized within the prior 30 days at any hospital? Yes Last DP export: 11/17/18 3:45 p Patient Name: ANY LANDIS Page [id number] at 1357 All edits/amendments must be made on the electronic document DICTATION DATE: 11/28/18 135 LOADING UNIT OPERATOR SEATING: SACHA 11/28/18 1357 RPT#: [id number] DC DATE: STATUS: ADM IN [facility] [address] [place] [address] END OF REPORT
--- NOTE | 2018-11-28 15:00 | NUR ---
REASSESSMENT COMPLETE PER FLOW SHEET. VSS. NO NEW CHANGES WILL CONTINUE TO MONITOR
--- NOTE | 2018-11-28 15:20 | NUR ---
OT NOTE: PT DOING WELL TODAY; UP IN CHAIR ATTEMPTING TO REMOVE RUBBERBAND FROM HAIR. ABLE TO PERFORM SIMPLE GROOMING AND FEEDING WITH SET UP; TRANSFERS WITH MIN ASSIST; ABLE TO AMB WITH MIN ASSIST; PT FATIGUED AFTER APPROX 30-40 FT. 1 STANDING REST BREAK REQUIRED. Betsy BOGGS TR/L
--- NOTE | 2018-11-28 17:20 | NUR ---
ASSISTED UP TO BEDSIDE COMMODE LARGE BM NOTED
--- NOTE | 2018-11-28 18:05 | NUR ---
FAMILY AT BEDSIDE GIVEN UDPATE
--- NOTE | 2018-11-28 19:30 | NUR ---
PT ALERT, ORIENTED, O2 @ 2L VIA N/C, LEFT CHEST TUBE INTACT TO 20 CM SUCTION, L TLSC INTACT INFUSING PLASMALITE @ 30 CC/HR, MORPHINE EAP SPECIALIST WITH PAIN BUTTON IN REACH, NO C/O
--- NOTE | 2018-11-28 21:40 | NUR ---
DRESSING CHANGED TO LEFT CHEST TUBE, PT TOLERATED WELL, NO LEAKS NOTED
--- NOTE | 2018-11-28 23:30 | NUR ---
PT AWAKE WATCHING TV WITH NO COMPLAINTS
[2018-11-29] VITALS (18 sets, daily range): BP systolic 98–154; BP diastolic 57–78
--- NOTE | 2018-11-29 01:30 | NUR ---
RESTING QUIETLY, CHEST TUBE INTACT
--- NOTE | 2018-11-29 03:30 | NUR ---
PT SLEEPING WITH NO DISTRESS
--- NOTE | 2018-11-29 05:26 | NUR ---
AROUSES EASILY, VITALS STABLE, LEFT CHEST TUBE REMAINS INTACT TO 20 CM SUCTION
[2018-11-29 05:41] LABS: BASOPHILS 0.6 % (0-2); EOSINOPHILS 3.7 % (0-7); HEMATOCRIT 25.9 % (36.0-48.0); HEMOGLOBIN 8.1 g/dL (12-16); IMMATURE GRANULOCYTES 0.7 % (0-5); LYMPHOCYTES 27.5 % (15-50); MCH 27.4 pg (26.0-34.0); MCHC 31.3 g/dL (31.0-37.0); MCV 87.5 fL (80.0-100.0); MEAN PLATELET VOLUME 10.6 fL (7.4-10.4); MONOCYTES 16.6 % (2-11); NEUTROPHILS 50.9 % (40-80); PLATELET COUNT 585 10x3/uL (130-400); RBC 2.96 10x6/uL (4.00-5.40); RDW 16.3 % (11.5-14.5); WBC 15.2 10x3/uL (4.8-10.8)
[2018-11-29 05:57] LABS: ALBUMIN 1.8 g/dL (3.4-5.0); ALKALINE PHOSPHATASE 55 U/L (46-116); ALT (SGPT) 20 U/L (10-68); BILIRUBIN - TOTAL 0.49 mg/dL (0.2-1.3); CALC OSMOLALITY 272 mosm/kg (275-300); CALCIUM 8.3 mg/dL (8.5-10.1); CARBON DIOXIDE 30.7 mmol/L (21.0-32.0); CHLORIDE - SERUM 100 mmol/L (98-107); CREATININE - SERUM 0.5 mg/dL (0.6-1.3); GLUCOSE 108 mg/dL (74-106); MAGNESIUM - SERUM 2.1 mg/dL (1.8-2.4); POTASSIUM - SERUM 4.1 mmol/L (3.5-5.1); PROTEIN - SERUM 5.7 g/dL (6.4-8.2); SODIUM 137 mmol/L (136-145); eGFR NON AFRICAN AMERICAN > 90 mL/min (90-120)
[2018-11-29 06:06] LABS: UREA NITROGEN 7 mg/dL (7-18)
--- NOTE | 2018-11-29 07:20 | NUR ---
REPORT RECEIVED. ASSESSMENT COMPLETE PER FLOW SHEET. VSS. PT ASSISTED UP OOB TO CHAIR GIVEN BREAKFAST. DENIES NEEDS WILL CONTINUE ALYSON ONITOR
--- NOTE | 2018-11-29 09:15 | NUR ---
PT ATE 75% BREAKFAST. ASSISTED TO BEDSIDE COMMODE. DENIES NEEDS WILL CONTINUE TO MONITOR
--- NOTE | 2018-11-29 11:00 | NUR ---
REASSESSMENT COMPLETE PER FLOW SHEET. VSS. NO NEW CHANGES WILL CONTINUE TO MONITOR
--- NOTE | 2018-11-29 11:04 | NUR ---
Nutrition follow-up: Diet: Regular PO intake 75-100% of meals Labs reviewed Wt: 185# +BM albumin low RDN ordered Boost with meals to increase protein intake. RDN following.
--- NOTE | 2018-11-29 12:10 | NUR ---
CHELSEY WITH DR REMY CALLED GIVEN UDPATE. NO NEW ORDERS RECEIVED.
--- NOTE | 2018-11-29 13:14 | NUR ---
Nutrition consult: Received consult from Dr. Rabago for pts low albumin. Ordered Boost nutritional supplement TID (30 gms protein) Also ordered Proteinex, 30 ml BID (30 gms protein) Pt is also eating 75-100% of most meals and RDN will encourage increased protein intake. Thank you for the consult RDN following.
--- NOTE | 2018-11-29 13:30 | NUR ---
TIESHA WITH DIETARY AT BEDSIDE GIVEN UDPATE. NEW ORDERS RECEIVED.
--- NOTE | 2018-11-29 14:20 | NUR ---
PT AT BEDSIDE WALKED AROUND UNIT WITHOUT DIFFICULTY. WILL CONTINUE TO MONITOR
--- NOTE | 2018-11-29 15:00 | NUR ---
REASSESSMENT COMPLETE PER FLOW SHEET. VSS. NO NEW CHANGES WILL CONTINUE TO MONITOR
--- NOTE | 2018-11-29 16:28 | NUR ---
DR REMY AND CHELSEY AT BEDSIDE GIVEN UDPATE L LAT CT REMOVED WITHOUT DIFFICULTY
--- NOTE | 2018-11-29 16:45 | NUR ---
OT NOTE: PT COMPLETED BED MOBILITY TASKS WITH CGA FOR SUPINE TO SIT AT EOB. PT EXHIBITS INCREASED STRENGTH AND ACTIVITY TOLERANCE. PT SIDE STEPPED WITH SBA/CGA. PT ACTIVELY PARTICIPATED WITH NO C/O OF PAIN. THANK YOU, JAKUB GARCIA
[2018-11-30] VITALS: BP 127/66
[2018-11-30 01:00] VITALS: BP 116/64
[2018-11-30 02:00] VITALS: BP 130/68
[2018-11-30 03:00] VITALS: BP 112/58
[2018-11-30 06:30] LABS: CALC OSMOLALITY 277 mosm/kg (275-300); CALCIUM 8.6 mg/dL (8.5-10.1); CARBON DIOXIDE 31.2 mmol/L (21.0-32.0); CHLORIDE - SERUM 102 mmol/L (98-107); CREATININE - SERUM 0.5 mg/dL (0.6-1.3); GLUCOSE 117 mg/dL (74-106); POTASSIUM - SERUM 4.1 mmol/L (3.5-5.1); SODIUM 140 mmol/L (136-145); UREA NITROGEN 6 mg/dL (7-18); eGFR NON AFRICAN AMERICAN > 90 mL/min (90-120)
--- NOTE | 2018-11-30 07:00 | NUR ---
REPORT RECEIVED. ASSESSMENT COMPLETE PER FLOW SHEET. VSS. PT RESTING COMFORTABLY. RT AT BEDSIDE. GIVEN UDPATE. BREATHING TX ADM. PT DENIES NEEDS WILL CONTINUE TO MONITOR
[2018-11-30 07:12] LABS: BASOPHILS 0.7 % (0-2); EOSINOPHILS 4.5 % (0-7); HEMATOCRIT 29.9 % (36.0-48.0); HEMOGLOBIN 9.4 g/dL (12-16); IMMATURE GRANULOCYTES 1.1 % (0-5); LYMPHOCYTES 24.8 % (15-50); MCH 27.6 pg (26.0-34.0); MCHC 31.4 g/dL (31.0-37.0); MCV 87.9 fL (80.0-100.0); MEAN PLATELET VOLUME 10.9 fL (7.4-10.4); MONOCYTES 15.9 % (2-11); PLATELET COUNT 563 10x3/uL (130-400); RDW 16.4 % (11.5-14.5); WBC 14.3 10x3/uL (4.8-10.8)
--- NOTE | 2018-11-30 12:25 | MORECARE ---
CASE MANAGEMENT DISCHARGE SUMMARY PATIENT: ANY LANDIS UNIT: [id number] ADM DATE: 11/16/18 AGE: 63 : 51 SEX: F ROOM/BED: D.2304 AUTHOR: MELISSA,DOC PHYSICIAN: REFERRING PHYSICIAN: CARLOS ALLISON MD DATE OF SERVICE: 11/30/18 Discharge Plan Patient Name: ANY LANDIS Facility: [facility]:[place] : 1955 Planned Disposition: Home Anticipated Discharge Date: Discharge Date: Expected LOS: Initial Reviewer: [email or web address] Initial Review Date: 11/16/2018 Generated: 11/30/18 1:25 pm Comments DCP- Discharge Planning Updated by [id number]: Maria C Ozuna on 11/30/18 11:[address] Patient Name: ANY LANDIS Admission Status: ER Accout number: [id number] Admission Date: 11-16-2018 : 1955 Admission Diagnosis:SEPSIS, UNSPECIFIED ORGANISM Attending: CARLOS ALLISON Current LOS: 14 Anticipated DC Date: Planned Disposition: Home Primary Insurance: [facility] [employer] Discharge Planning Comments: PATIENT WILL NEED 10 DAYS IV ANTIBIOTICS AND MAY NEED 02. SPOKE WITH DAMIAN ROBERTS IN IDT MEETING AND SHE WILL ASSESS. CM TO FOLLOW AND ASSIST. Computational Physicist: Maria C Ozuna DCP- Discharge Planning Updated by [id number]: Maria C Ozuna on 11/28/18 12:[address] Patient Name: ANY LANDIS Admission Status: ER Accout number: [id number] Admission Date: 11-16-2018 : 1955 Admission Diagnosis:SEPSIS, UNSPECIFIED ORGANISM Attending: CARLOS ALLISON Current LOS: 12 Anticipated DC Date: Planned Disposition: Home Primary Insurance: [facility] [employer] Discharge Planning Comments: CM MET WITH PATIENT TODAY ABOUT DC PLANNING/NEEDS. I TALKED WITH HER ABOUT HOME HEALTH, REHAB AND JAIL. SHE REFUSES ANY SERVICES AND STATES SHE HAS PLENTY OF HELP AT HOME. JEREMY FOR REFUSAL SIGNED. WILL ENCOURAGE PATIENT TO ACCEPT SERVICES AT TIME OF DISCHARGE. SHE STILL HAS ONE CHEST TUBE IN AND IS ON 02 NC. STATES IS NOT ON O2 AT HOME. CM TO FOLLOW AND ASSIST NEEDED. Computational Physicist: Maria C Ozuna DCP- Discharge Planning Updated by [email or web address]: Rivka Kalen on 11/17/18 3:[address] Patient Name: ANY LANDIS Admission Status: ER Accout number: [id number] Admission Date: 11-16-2018 : 1955 Admission Diagnosis: Attending: CARLOS ALLISON Current LOS: 1 Anticipated DC Date: Planned Disposition: Home Primary Insurance: [facility] [employer] Discharge Planning Comments: CM met with patient and significant other Katharine at bedside after explaining CM role and obtaining verbal consent. Patient lives at home with Katharine and plans to return there upon discharge. Patient feels this would be a safe discharge. Patient states that she has a walker at home but no other medical equipment. Patient states that she doesn't have home health or any other community resources in use prior to admission. Patient denies any discharge needs at this time. Patient states she will have family drive her home upon discharge. CM will continue to follow and assist as needed with discharge planning / needs. Computational Physicist: Rivka Higuera DCPIA - Discharge Planning Initial Assessment Updated by [email or web address]: Rivka Kalen on 11/17/18 4:29 pm * Is the patient Alert and Oriented? Yes * How many steps to enter\exit or inside your home? * PCP [facility]A [facility] * [facility]acy [facility] * Preadmission Environment Home with Family * ADLs Independent * Equipment Walker * List name and contact numbers for known caregivers / representatives who currently or will assist patient after discharge: KATHARINE [facility]- [phone] * Verbal permission to speak to the caregivers and representatives has been obtained from the patient. Yes * Community resources currently utilized None * Additional services required to return to the preadmission environment? No * Can the patient safely return to the preadmission environment? Yes * Has this patient been hospitalized within the prior 30 days at any hospital? Yes Coverage Notice Reviewer: [email or web address] - Mari aC Ozuna Notice Issued Date-Time: 11/28/2018 17:16 Notice Type: Patient Choice Letter Notice Delivered To: Patient Relationship to Patient: Knife Sharpener Name: Delivery Method: HAND - Hand Delivered Vidhi Days: Prior Verbal Notification: Recipient Understood Notice: Yes Recipient Signature: Yes Med Rec Note Co-signed by Attending: Coverage Notice Comment: REFUSED REHAB , HH, SNF SERVICES. Last DP export: 11/28/18 12:57 pm Patient Name: ANY LANDIS Page [id number] at 1225 All edits/amendments must be made on the electronic document DICTATION DATE: 11/30/181224 BEHAVIORAL HEALTH RN: SACHA 11/30/185 RPT#: [id number] DC DATE: STATUS: ADM IN [facility] [address] [place] [address] END OF REPORT
--- NOTE | 2018-11-30 12:48 | NUR ---
Rehab Note- Spoke with Girma with [facility]- states clinicals have been received & Auth is still pending at this time. Will continue to await determination. Will continue to follow at this time. Thank you for this referral! Roes Nunes RN CLinical Liaison, [facility] Rehab
--- NOTE | 2018-11-30 14:30 | NUR ---
PATIENT RECEIVED FROM ICU STAFF. 22 NURA TO LEFT UPPER BACK. BUTTOCKS RED AND EXCORIATED. NO NEEDS AT THIS TIME. CL IN REACH. WCTM
--- NOTE | 2018-11-30 14:38 | NUR ---
Redness and excoriation noted from gluteal cleft to perineal area. Pt is up with PT, walks, sits in chair, positions, repositions herself in bed and performs her own ADLs. This excoriation appears to be moisture related. Recommended calmoseptine cream be applied twice daily and as needed. Will continue monitoring.
--- NOTE | 2018-11-30 16:13 | NUR ---
OT NOTE: PT COMPLETED BUE AROM EXS. PT COMPLETED SIDE ROLLING WITH SPV. THANK YOU, JAKUB GARCIA
--- NOTE | 2018-11-30 20:00 | NUR ---
PT SITTING UP IN BED WITHOUT DISTRESS, ALERT AND ORIENTED. STATES PAIN TO CHEST AND "ALL OVER" GAVE NORCO ORDERED. LEFT SUBCLAVIAN INFUSING PLASMALYTE @ 30. O2 2L/NC. INCISION TO LEFT UPPER BACK WITH 22 NURA. PT BOTTOM EXCORIATED, BOUDREAUXS CREAM BEING APPLIED. SPOKE WITH ANDERS PUENTES APN ABOUT PT REQUESTED SOMETHING FOR SLEEP, ORDERS RECIEVED FOR BENADRYL. GAVE ORDERED. CL IN REACH, WILL CTM
[2018-11-30 21:58] VITALS: BP 110/52
[2018-12-01 01:37] VITALS: BP 121/54
[2018-12-01 05:37] VITALS: BP 118/64
[2018-12-01 08:14] LABS: EOSINOPHILS 3.5 % (0-7); HEMATOCRIT 26.8 % (36.0-48.0); HEMOGLOBIN 8.5 g/dL (12-16); IMMATURE GRANULOCYTES 0.5 % (0-5); MCH 27.5 pg (26.0-34.0); MCHC 31.7 g/dL (31.0-37.0); MCV 86.7 fL (80.0-100.0); MEAN PLATELET VOLUME 10.4 fL (7.4-10.4); RBC 3.09 10x6/uL (4.00-5.40); RDW 16.5 % (11.5-14.5); WBC 17.1 10x3/uL (4.8-10.8)
[2018-12-01 08:19] LABS: PLATELET COUNT 685 10x3/uL (130-400)
[2018-12-01 08:28] LABS: ALBUMIN 2.1 g/dL (3.4-5.0); ALKALINE PHOSPHATASE 61 U/L (46-116); ALT (SGPT) 21 U/L (10-68); BILIRUBIN - TOTAL 0.59 mg/dL (0.2-1.3); CALC OSMOLALITY 275 mosm/kg (275-300); CALCIUM 8.5 mg/dL (8.5-10.1); CARBON DIOXIDE 30.8 mmol/L (21.0-32.0); CHLORIDE - SERUM 104 mmol/L (98-107); CREATININE - SERUM 0.5 mg/dL (0.6-1.3); GLUCOSE 90 mg/dL (74-106); POTASSIUM - SERUM 3.5 mmol/L (3.5-5.1); PROTEIN - SERUM 6.4 g/dL (6.4-8.2); SODIUM 139 mmol/L (136-145); UREA NITROGEN 6 mg/dL (7-18); eGFR NON AFRICAN AMERICAN > 90 mL/min (90-120)
[2018-12-01 09:51] VITALS: BP 131/57
[2018-12-01 12:00] VITALS: BP 155/63
--- NOTE | 2018-12-01 13:35 | NUR ---
Nutrition Follow Up: Chart reviewed Diet: Regular; Ensure TID; Proteinex BID PO Intake: 66% meal avg Meds and labs reviewed Rec continue current diet, supplement regimen. RD following.
--- NOTE | 2018-12-01 13:55 | NUR ---
Rehab Note- Received call from Queenie with [facility], the patient has received Auth for inpatient acute rehab stay. Spoke with RAN Ward. Auth #[id number]. Thank you for this referral! Rose Nunes RN Clinical Liaison, [facility] Rehab
--- NOTE | 2018-12-01 14:54 | NUR ---
OT NOTE: PT COMPLETED ADL MOB AND BED MOB TASKS WITH SBA/SPV. PT COMPLETED TOILETING TASKS WITH SPV. PT COMPLETED EOB SHARONA/DOFF SOCKS WITH SBA/SPV. THANK YOU, JAKUB GARCIA
--- NOTE | 2018-12-01 16:14 | MORECARE ---
CASE MANAGEMENT DISCHARGE SUMMARY PATIENT: ANY LANDIS UNIT: [id number] ADM DATE: 11/16/18 AGE: 63 : [birth year] SEX: F ROOM/BED: D.2220 AUTHOR: MELISSA,DOC PHYSICIAN: REFERRING PHYSICIAN: CARLOS ALLISON MD DATE OF SERVICE: 12/01/18 Discharge Plan Patient Name: ANY LANDIS Facility: [facility]:[place] : 1955 Planned Disposition: Home Anticipated Discharge Date: Discharge Date: Expected LOS: Initial Reviewer: [id number] Initial Review Date: 11/16/2018 Generated: 12/01/18 5:13 pm Comments DCP- Discharge Planning Updated by [email or web address]: Millie Browning on 12/01/18 3:[address] Auth received for inpatient rehab has been received. Garima WHITE aware. They will accept patient when she is stable DCP- Discharge Planning Updated by [email or web address]: Maria C Ozuna on 11/30/18 11:[address] Patient Name: ANY LANDIS Admission Status: ER Accout number: [id number] Admission Date: 11-16-2018 : 1955 Admission Diagnosis:SEPSIS, UNSPECIFIED ORGANISM Attending: CARLOS ALLISON Current LOS: 14 Anticipated DC Date: Planned Disposition: Home Primary Insurance: [employer] Discharge Planning Comments: PATIENT WILL NEED 10 DAYS IV ANTIBIOTICS AND MAY NEED 02. SPOKE WITH DAMIAN ROBERTS IN IDT MEETING AND SHE WILL ASSESS. CM TO FOLLOW AND ASSIST. Group Leader Semiconductor Testing: Maria C Ozuna DCP- Discharge Planning Updated by [email or web address]: Maria C Ozuna on 11/28/18 12:[address] Patient Name: ANY LANDIS Admission Status: ER Accout number: [id number] Admission Date: 11-16-2018 : 1955 Admission Diagnosis:SEPSIS, UNSPECIFIED ORGANISM Attending: CARLOS ALLISON Current LOS: 12 Anticipated DC Date: Planned Disposition: Home Primary Insurance: [employer] Discharge Planning Comments: CM MET WITH PATIENT TODAY ABOUT DC PLANNING/NEEDS. I TALKED WITH HER ABOUT HOME HEALTH, REHAB AND GROUP HOME. SHE REFUSES ANY SERVICES AND STATES SHE HAS PLENTY OF HELP AT HOME. JEREMY FOR REFUSAL SIGNED. WILL ENCOURAGE PATIENT TO ACCEPT SERVICES AT TIME OF DISCHARGE. SHE STILL HAS ONE CHEST TUBE IN AND IS ON 02 NC. STATES IS NOT ON O2 AT HOME. CM TO FOLLOW AND ASSIST NEEDED. Group Leader Semiconductor Testing: Maria C Ozuna DCP- Discharge Planning Updated by [email or web address]: Rivka Higuera on 11/17/18 3:[address] Patient Name: ANY LANDIS Admission Status: ER Accout number: [id number] Admission Date: 11-16-2018 : 1955 Admission Diagnosis: Attending: CARLOS ALLISON Current LOS: 1 Anticipated DC Date: Planned Disposition: Home Primary Insurance: [employer] Discharge Planning Comments: CM met with patient and significant other Katharine at bedside after explaining CM role and obtaining verbal consent. Patient lives at home with Katharine and plans to return there upon discharge. Patient feels this would be a safe discharge. Patient states that she has a walker at home but no other medical equipment. Patient states that she doesn't have home health or any other community resources in use prior to admission. Patient denies any discharge needs at this time. Patient states she will have family drive her home upon discharge. CM will continue to follow and assist as needed with discharge planning / needs. Group Leader Semiconductor Testing: Rivka Higuera DCLucy - Discharge Planning Initial Assessment Updated by [email or web address]: Rikva Higuera on 11/17/18 4:29 pm * Is the patient Alert and Oriented? Yes * How many steps to enter\exit or inside your home? * PCP VERONIKA BAIRD * Pharmacy [facility] * Preadmission Environment Home with Family * ADLs Independent * Equipment Walker * List name and contact numbers for known caregivers / representatives who currently or will assist patient after discharge: [facility]- [phone] * Verbal permission to speak to the caregivers and representatives has been obtained from the patient. Yes * Community resources currently utilized None * Additional services required to return to the preadmission environment? No * Can the patient safely return to the preadmission environment? Yes * Has this patient been hospitalized within the prior 30 days at any hospital? 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 Last DP export: 11/30/18 11:25 a Patient Name: ANY LANDIS Page 46902 at 1614 All edits/amendments must be made on the electronic document DICTATION DATE: 12/01/18 1613 PERSONAL INVESTMENT ADVISER: SACHA 12/01/18 1613 RPT#: [id number] DC DATE: STATUS: ADM IN [facility] [address] [place] [address] END OF REPORT
[2018-12-01 16:51] VITALS: BP 141/65
[2018-12-01 20:00] VITALS: BP 125/56
--- NOTE | 2018-12-01 23:09 | NUR ---
ALERT & ORIENTED. PT C/O PAIN 11/29. GAVE NORCO-5 1 TAB PO. NO OTHER NEEDS. WILL CONTINUE TO MONITOR.
[2018-12-02] VITALS: BP 120/73
[2018-12-02 07:44] LABS: BASOPHILS 1.1 % (0-2); EOSINOPHILS 3.9 % (0-7); HEMATOCRIT 27.8 % (36.0-48.0); HEMOGLOBIN 8.7 g/dL (12-16); IMMATURE GRANULOCYTES 0.7 % (0-5); LYMPHOCYTES 28.9 % (15-50); MCH 27.2 pg (26.0-34.0); MCHC 31.3 g/dL (31.0-37.0); MCV 86.9 fL (80.0-100.0); MEAN PLATELET VOLUME 9.9 fL (7.4-10.4); MONOCYTES 19.1 % (2-11); NEUTROPHILS 46.3 % (40-80); PLATELET COUNT 713 10x3/uL (130-400); RDW 16.6 % (11.5-14.5)
[2018-12-02 08:13] LABS: ALBUMIN 2.2 g/dL (3.4-5.0); ALKALINE PHOSPHATASE 69 U/L (46-116); ALT (SGPT) 19 U/L (10-68); BILIRUBIN - TOTAL 0.42 mg/dL (0.2-1.3); CALC OSMOLALITY 275 mosm/kg (275-300); CALCIUM 8.4 mg/dL (8.5-10.1); CARBON DIOXIDE 29.5 mmol/L (21.0-32.0); CHLORIDE - SERUM 104 mmol/L (98-107); CREATININE - SERUM 0.6 mg/dL (0.6-1.3); GLUCOSE 97 mg/dL (74-106); POTASSIUM - SERUM 3.8 mmol/L (3.5-5.1); PROTEIN - SERUM 6.7 g/dL (6.4-8.2); SODIUM 139 mmol/L (136-145); UREA NITROGEN 7 mg/dL (7-18); eGFR NON AFRICAN AMERICAN > 90 mL/min (90-120)
[2018-12-02 08:26] VITALS: BP 145/70
--- NOTE | 2018-12-02 09:10 | NUR ---
PT ALERT X 4. BREATH SOUNDS CLEAR BILAT, 2L O2 PER HF NC, REPORTING SOME SOB. MIDLINE TO RIGHT UPPER ARM, PATENT, DRESSING CDI. 22 NURA TO L SCAPULAR AREA, INCISION WELL APPROXIMATED, NO REDDNESS OR DRAINAGE NOTED. 2 DRESSINGS TO LEFT SIDE ON POST CHEST TUBE SITES CDI. PT REPORTING PAIN OF 5/10, WILL MONITOR. BED LOW, CALL LIGHT IN REACH. NO OTHER NEEDS AT THIS TIME.
[2018-12-02 12:46] VITALS: BP 124/56
[2018-12-02 17:52] VITALS: BP 146/46
[2018-12-02 20:00] VITALS: BP 149/68
--- NOTE | 2018-12-02 21:23 | NUR ---
PT ALERT & ORIENTED. PT C/O LEFT CHEST AND BACK PAIN 01/30. GAVE 1 TAB NORCO-5. GAVE SCHEDULED MEDS. COMPLETE ASSESSMENT PER FLOW-SHEET. NO OTHER NEEDS. WILL REASSESS AND CONTINUE TO MONITOR.
[2018-12-03 04:00] VITALS: BP 145/70
[2018-12-03 06:41] LABS: BASOPHILS 0.8 % (0-2); EOSINOPHILS 3.9 % (0-7); HEMOGLOBIN 9.2 g/dL (12-16); IMMATURE GRANULOCYTES 0.5 % (0-5); LYMPHOCYTES 31.4 % (15-50); MCH 27.7 pg (26.0-34.0); MCHC 31.7 g/dL (31.0-37.0); MCV 87.3 fL (80.0-100.0); MEAN PLATELET VOLUME 10.3 fL (7.4-10.4); MONOCYTES 18.2 % (2-11); NEUTROPHILS 45.2 % (40-80); PLATELET COUNT 760 10x3/uL (130-400); RBC 3.32 10x6/uL (4.00-5.40); RDW 16.9 % (11.5-14.5); WBC 16.5 10x3/uL (4.8-10.8)
[2018-12-03 07:04] LABS: ALBUMIN 2.1 g/dL (3.4-5.0); ALKALINE PHOSPHATASE 65 U/L (46-116); ALT (SGPT) 19 U/L (10-68); CALC OSMOLALITY 275 mosm/kg (275-300); CALCIUM 8.5 mg/dL (8.5-10.1); CARBON DIOXIDE 28.3 mmol/L (21.0-32.0); CHLORIDE - SERUM 103 mmol/L (98-107); CREATININE - SERUM 0.5 mg/dL (0.6-1.3); GLUCOSE 96 mg/dL (74-106); POTASSIUM - SERUM 3.9 mmol/L (3.5-5.1); PROTEIN - SERUM 6.9 g/dL (6.4-8.2); SODIUM 139 mmol/L (136-145); UREA NITROGEN 7 mg/dL (7-18); eGFR NON AFRICAN AMERICAN > 90 mL/min (90-120)
[2018-12-03 09:17] VITALS: BP 140/46
--- NOTE | 2018-12-03 09:34 | NUR ---
PT ALERT X 4. BREATH SOUNDS CLEAR BILAT, 2L O2 PER NC. MIDLINE TO RIGHT UPPER ARM, PATENT, DRESSING CDI. 22 NURA TO LEFT SCAPULAR AREA, INCISIO WELL APPROXIMATED. PT REPORTING PAIN OF 8/10, NO MEDICATIONS DUE AT THIS TIME, WILL MONITOR. BED LOW, CALL LIGHT IN REACH. NO OTHER NEEDS AT THIS TIME.
[2018-12-03 13:07] VITALS: BP 123/55
[2018-12-03] MEDS ORDERED: Xopenex 0.63 MG INH INH (14:57)
[2018-12-03] MEDS ORDERED: ATROVENT 0.02%2.5 ML INH (14:57)
[2018-12-03] MEDS ORDERED: BROVANA15 MCG/2 M INH (14:57)
[2018-12-03] MEDS ORDERED: BENADRYL50 MG PO (14:57)
[2018-12-03] MEDS ORDERED: DIFLUCAN100 MG PO (14:57)
[2018-12-03] MEDS ORDERED: HYDROCODON-ACE1 EAC7 PO (14:58)
[2018-12-03] MEDS ORDERED: TESSALON PERLE100 MG PO (14:58)
[2018-12-03] MEDS ORDERED: DURAGESIC1 PATCH .7 TRANSDERM (14:58)
[2018-12-03] MEDS ORDERED: PULMICORT0.5 MG/21 UPD (14:59)
[2018-12-03] MEDS ORDERED: BOUDREAUXS BUTT60 GM TOPICAL (14:59)
[2018-12-03] MEDS ORDERED: FLORAJEN3 CAPS460 MG PO (14:59)
[2018-12-03] MEDS ORDERED: PROTONIX40 MG PO (14:59)
[2018-12-03] MEDS ORDERED: MUCINEX DM ER1 EAC1 PO (14:59)
[2018-12-03] MEDS ORDERED: CALMOSEPTINE OI71 GM TOPICAL (14:59)
[2018-12-03 17:00] VITALS: BP 146/63
--- NOTE | 2018-12-03 18:37 | NUR ---
DISCHARGE PAPERWORK SIGNED, ALL QUESTIONS ANSWERED. MIDLINE TO RIGHT UPPER ARM DC'D, PRESSURE DRESSING APPLIED. PT TRANSFERRED TO REHAB VIA WHEELCHAIR.
--- NOTE | 2018-12-04 18:37 | EC ---
PATIENT:ANY LANDIS DATE OF SERVICE: 11/16/18 SEX: F MEDICAL RECORD: [id number] DATE OF : [birth year] LOCATION:D.MS [id number] AGE OF PATIENT: 63 ADMISSION DATE: 11/16/18 REFERRING PHYSICIAN: INTERPRETING PHYSICIAN: FLAVIO PENALOZA MD ECHOCARDIOGRAM REPORT ECHO CHARGES 4 ECHO COMPLETE Date: 11/19/18 CLINICAL DIAGNOSIS: A-FIB ECHOCARDIOGRAPHIC MEASUREMENTS (adult normal given) AC root (d.<3.7cm) 3.3 cm LV Septum d (<1.2 cm> 1.3 cm Valve Excursion 1.3 cm LV Septum (systole) 1.7 cm Left Atria (s.<4.0cm> 3.4 cm LVPW d(<1.2cm) 1.2 cm RV (d.<2.3cm) 2.8 cm LVPW (sytole) 1.6 cm LV diastole(<5.6CM) 6.5 cm MV E-F(>70mm/sec) cm LV systole 5.2 cm LVOT Diameter 1.8 cm MV exc.(>10mm) cm Est.ejection fraction (50-75%) % DOPPLER: LVIT cm/sec A 60.0 cm/sec E 96.0 cm/sec LA cm/sec RVSP 21.2 mmHg LVOT 131 cm/sec AOP1/2T m/s Asc. Ao 151 cm/sec RVOT 57.0 cm/sec RA cm/sec PA 82.0 cm/sec AV Gradient Peak 9.1 mmHg AV Mean 4.3 mmHg AV Area 1.8 cm MV Gradient Peak 5.4 mmHg MV Mean 2.0 mmHg MV Area cm COMMENTS: Compensation Intern: 1 AKUA VINSONOE Hockey Player: 1 Dr. Penaloza TAPE# PACS Pericardial Effusion Y DATE OF SERVICE: FINDINGS: 1. Left ventricular chamber size is dilated. Left ventricular systolic function is preserved at 50%. 2. Left atrium, right atrium and right ventricular chamber sizes are within normal limits. 3. Valvular structures have normal structure and motion. 4. Doppler interrogation reveals no significant valvular insufficiency or stenosis and pulmonary systolic pressure is estimated at 21 mmHg. ECHOCARDIOGRAM REPORT [id number] ANY LANDIS 5. Small pericardial effusion is present, not hemodynamically significant. No evidence of left ventricular thrombus. TRANSINT:[id number] Voice Confirmation ID: [id number] DOCUMENT ID: [id number] FLAVIO PENALOZA MD at 1837 CC: [id number] DICTATION DATE: 11/20/18 1101 ENGINEERING MANAGER: 11/20/18 1127 DIS IN 12/03/18 [place] [id number] [place] [id number]
--- NOTE | 2018-12-05 12:27 | MORECARE ---
CASE MANAGEMENT DISCHARGE SUMMARY PATIENT: ANY LANDIS UNIT: [id number] ADM DATE: 11/16/18 AGE: 63 : [birth year] SEX: F ROOM/BED: D.2220 AUTHOR: MELISSADOC PHYSICIAN: REFERRING PHYSICIAN: CARLOS ALLISON MD DATE OF SERVICE: 12/05/18 Discharge Plan Patient Name: ANY LANDIS Facility: [facility]:[place] : 1955 Planned Disposition: Home Anticipated Discharge Date: Discharge Date: 12/03/2018 Expected LOS: 0 Initial Reviewer: [email or web address] Initial Review Date: 11/16/2018 Generated: 12/05/18 1:27 pm Comments DCP- Discharge Planning Updated by [email or web address]: Millie Browning on 12/01/18 3:[address] Auth received for inpatient rehab has been received. Garima WHITE aware. They will accept patient when she is stable DCP- Discharge Planning Updated by [email or web address]: Maria C Ozuna on 11/30/18 11:[address] Patient Name: ANY LANDIS Admission Status: ER Accout number: [id number] Admission Date: 11-16-2018 : 1955 Admission Diagnosis:SEPSIS, UNSPECIFIED ORGANISM Attending: CARLOS ALLISON Current LOS: 14 Anticipated DC Date: Planned Disposition: Home Primary Insurance: [facility] [employer]UT[employer] Discharge Planning Comments: PATIENT WILL NEED 10 DAYS IV ANTIBIOTICS AND MAY NEED 02. SPOKE WITH DAMIAN ROBERTS IN IDT MEETING AND SHE WILL ASSESS. CM TO FOLLOW AND ASSIST. Content Administrator: Maria C Ozuna DCP- Discharge Planning Updated by [email or web address]: Maria C Ozuna on 11/28/18 12:[address] Patient Name: ANY LANDIS Admission Status: ER Accout number: [id number] Admission Date: 11-16-2018 : 1955 Admission Diagnosis:SEPSIS, UNSPECIFIED ORGANISM Attending: CARLOS ALLISON Current LOS: 12 Anticipated DC Date: Planned Disposition: Home Primary Insurance: [facility] [employer] SOLUT[employer] Discharge Planning Comments: CM MET WITH PATIENT TODAY ABOUT DC PLANNING/NEEDS. I TALKED WITH HER ABOUT HOME HEALTH, REHAB AND CARE HOME. SHE REFUSES ANY SERVICES AND STATES SHE HAS PLENTY OF HELP AT HOME. JEREMY FOR REFUSAL SIGNED. WILL ENCOURAGE PATIENT TO ACCEPT SERVICES AT TIME OF DISCHARGE. SHE STILL HAS ONE CHEST TUBE IN AND IS ON 02 NC. STATES IS NOT ON O2 AT HOME. CM TO FOLLOW AND ASSIST NEEDED. Content Administrator: Maria C Ozuna DCP- Discharge Planning Updated by [email or web address]: Rivka Higuera on 11/17/18 3:[address] Patient Name: ANY LANDIS Admission Status: ER Accout number: [id number] Admission Date: 11-16-2018 : 1955 Admission Diagnosis: Attending: CARLOS ALLISON Current LOS: 1 Anticipated DC Date: Planned Disposition: Home Primary Insurance: [facility] [employer] Discharge Planning Comments: CM met with patient and significant other Katharine at bedside after explaining CM role and obtaining verbal consent. Patient lives at home with Katharine and plans to return there upon discharge. Patient feels this would be a safe discharge. Patient states that she has a walker at home but no other medical equipment. Patient states that she doesn't have home health or any other community resources in use prior to admission. Patient denies any discharge needs at this time. Patient states she will have family drive her home upon discharge. CM will continue to follow and assist as needed with discharge planning / needs. Content Administrator: Rivka Higuera DCA - Discharge Planning Initial Assessment Updated by [id number]: Rivka Higuera on 11/17/18 4:29 pm * Is the patient Alert and Oriented? Yes * How many steps to enter\exit or inside your home? * PCP VERONIKA BAIRD * Pharmacy [facility] * Preadmission Environment Home with Family * ADLs Independent * Equipment Walker * List name and contact numbers for known caregivers / representatives who currently or will assist patient after discharge: KATHARINE MARSHALL [facility]- [phone] * Verbal permission to speak to the caregivers and representatives has been obtained from the patient. Yes * Community resources currently utilized None * Additional services required to return to the preadmission environment? No * Can the patient safely return to the preadmission environment? Yes * Has this patient been hospitalized within the prior 30 days at any hospital? 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 Last DP export: 12/01/18 3:13 p Patient Name: ANY LANDIS Page 14810 at 1227 All edits/amendments must be made on the electronic document DICTATION DATE: 12/05/18 1226 MILL MACHINIST: SACHA 12/05/18 1226 RPT#: [id number] DC DATE:12/03/18 STATUS: DIS IN [facility] [address] [place] [address] END OF REPORT
== END 2018-12-03 18:38 | DRG 853 ==
LOC: D.ER 22:21 → D.ICU 22:39 → D.MS 11-30 16:47
PROVIDERS: Family Medicine; Internal Medicine Pulmonary Disease; Radiology Diagnostic Radiology; Thoracic Surgery (Cardiothoracic Vascular Surgery); ADMIT Family Medicine; ATTEND Family Medicine
PROC: 0W9B30Z Drainage of Left Pleural Cavity with Drainage Device, Percutaneous Approach (ICD-10-PCS; 2018-11-17)
PROC: 05HY33Z Insertion of Infusion Device into Upper Vein, Percutaneous Approach (ICD-10-PCS; principal; 2018-11-17 13:27)
PROC: 0BJ08ZZ Inspection of Tracheobronchial Tree, Via Natural or Artificial Opening Endoscopic (ICD-10-PCS; 2018-11-24)
PROC: 0BNL0ZZ Release Left Lung, Open Approach (ICD-10-PCS; 2018-11-24 07:30)
PROC: 0BNP0ZZ Release Left Pleura, Open Approach (ICD-10-PCS; 2018-11-24 07:30)
DX: A41.9 Sepsis, unspecified organism (principal); J18.9 Pneumonia, unspecified organism; J96.01 Acute respiratory failure with hypoxia; R65.21 Severe sepsis with septic shock; E43 Unspecified severe protein-calorie malnutrition; J86.9 Pyothorax without fistula; N39.0 Urinary tract infection, site not specified; D62 Acute posthemorrhagic anemia; J98.11 Atelectasis; J95.812 Postprocedural air leak; D64.9 Anemia, unspecified; I48.91 Unspecified atrial fibrillation; D89.9 Disorder involving the immune mechanism, unspecified; Z90.81 Acquired absence of spleen; E83.42 Hypomagnesemia; E87.6 Hypokalemia; I10 Essential (primary) hypertension

== ENCOUNTER 2018-12-03 18:25 | Inpatient (IN) | payer MEDICARE, MEDICAID ==
[~2018-12-03] VITALS: Ht 160 cm; Wt 72.6 kg
[~2018-12-03 18:25] MED LIST: ATROVENT 0.02%2.5 ML INH; BENADRYL50 MG PO; BOUDREAUXS BUTT60 GM TOPICAL; BROVANA15 MCG/2 M INH; CALMOSEPTINE OI71 GM TOPICAL; DIFLUCAN100 MG PO; DURAGESIC1 PATCH .7 TRANSDERM; FLORAJEN3 CAPS460 MG PO; HYDROCODON-ACE1 EAC7 PO; MUCINEX DM ER1 EAC1 PO; PROTONIX40 MG PO; PULMICORT0.5 MG/21 UPD; TESSALON PERLE100 MG PO; VASOTEC20 MG PO; Xopenex 0.63 MG INH INH; ZOLOFT25 MG PO
[2018-12-03 19:26] VITALS: BP 137/70
--- NOTE | 2018-12-03 19:54 | NUR ---
PATIENT IS RESTING IN HER BED. HER ADMISSION IS IN PROGRESS. SHE DENIES ANY NEEDS AT THIS TIME.
[2018-12-03 22:00] VITALS: BP 125/59
--- NOTE | 2018-12-04 | NUR ---
PATIENT IS RESTING IN BED WITH EYES CLOSED. NO SIGNS OF DISTRESS.
--- NOTE | 2018-12-04 04:08 | NUR ---
PATIENT IS RESTING IN BED WITH EYES CLOSED. NO SIGNS OF DISTRESS.
[2018-12-04 08:00] VITALS: BP 140/75
[2018-12-04 11:03] VITALS: Ht 160 cm; Wt 72.6 kg
--- NOTE | 2018-12-04 15:02 | NUR ---
PATIENT ADMITTED TO REHAB FROM ACUTE FLOOR. DISCHARGE PLANS ARE FOR PATIENT TO RETURN HOME WITH HER S/O. DME AT HOME IS Lucy GHOTRA. HER PCP IS DR. VERONIKA GIRARD IN [facility] . SHE WILL NEED AN APPOINTMENT WITH DR. REMY AT DISCHARGE.WILL CONTINUE TO FOLLOW WITH PATIENT.
--- NOTE | 2018-12-04 17:42 | NUR ---
RESTING QUIETLY IN BED. CALL LIGHT IN REACH. BED IN LOWEST POSITION. DENIES INCREASED SOB OR INCREASED PAIN. CALL LIGHTIN REACH
[2018-12-04 19:36] VITALS: BP 130/63
--- NOTE | 2018-12-04 21:00 | NUR ---
PATIENT RECEIVED SITTING UP IN BED. VITAL SIGNS & ASSESSMENT DONE. C/O PAIN TO LEFT SIDE. THIS NURSE WENT TO [facility], PAIN MEDICATION GIVEN FOR PAIN LEVEL 6 TO LEFT SIDE. NURA INTACT TO LEFT BACKSIDE. DRESSING TO LEFT SIDE INTACT, NO DRAINAGE NOTED. BED LOW. BEDSIDE TABLE & CALL LIGHT WITHIN REACH. WILL CONTINUE TO MONITOR.
--- NOTE | 2018-12-05 01:59 | NUR ---
PATIENT EYES CLOSED. RESPIRATIONS 18 & EVEN. BED LOW. ALARM ON. CALL LIGHT WITHIN REACH. WILL CONTINUE TO MONITOR.
--- NOTE | 2018-12-05 07:20 | NUR ---
RESTING QUIETLY IN BED, EYES CLOSED. NO S/S DISTRESS. OXGYEN IN PLACE 2LNC. CALL LIGHT IN REACH
[2018-12-05 08:00] VITALS: BP 129/52
--- NOTE | 2018-12-05 14:15 | NUR ---
SITTING UP IN WC. OXYGEN IN PLACE 2LNC. DENIES INCREASED SOB.
--- NOTE | 2018-12-05 16:35 | NUR ---
RESTING QUIETLY IN BED. WEARING OXYGEN 2LNC. DENIES INCREASED SOB OR PAIN. CALL LIGHT IN REACH. BED IN LOWEST POSITION.
--- NOTE | 2018-12-05 19:45 | NUR ---
PT RESTING IN BED WITH EYES OPEN. ALERT AND ORIENTED X 3. DENIES ACUTE DISCOMFORT AT THIS TIME. ASSISTED TO THE BATHROOM WITH CGA. PT AMBULATED WITHOUT ASSISTED DEVICE. INCISION TO BACK IS HEALING WELL. NURA ARE CDI. SR'S ARE UP X 2 IN BED. CALL LIGHT AND BEDSIDE TABLE ARE WITHIN EASY REACH.
--- NOTE | 2018-12-05 22:38 | NUR ---
PT IS RESTING QUIETLY IN BED WITH EYES CLOSED. RESPS ARE EVEN AND UNLABORED. NO ACUTE DISTRESS NOTED.
[2018-12-05 23:48] VITALS: BP 136/63
--- NOTE | 2018-12-06 01:02 | NUR ---
RESTING IN BED WITH EYES CLOSED.
--- NOTE | 2018-12-06 02:19 | NUR ---
RESTING IN BED WITH RESPRIRATIONS UNLABORED. NO DISTRESS NOTED. CALL LIGHT IN REACH.
--- NOTE | 2018-12-06 05:53 | NUR ---
PT RESTING IN BED WITH EYES CLOSED. AWOKE EASILY TO VERBAL STIMULI. TOLERATED AM MED WITHOUT DIFFICULTY. NO FURTHER NEEDS VOICED.
[2018-12-06 06:23] LABS: CALC OSMOLALITY 278 mosm/kg (275-300); CALCIUM 9.1 mg/dL (8.5-10.1); CARBON DIOXIDE 32.3 mmol/L (21.0-32.0); CHLORIDE - SERUM 103 mmol/L (98-107); CREATININE - SERUM 0.6 mg/dL (0.6-1.3); GLUCOSE 101 mg/dL (74-106); POTASSIUM - SERUM 4.5 mmol/L (3.5-5.1); SODIUM 141 mmol/L (136-145); UREA NITROGEN 8 mg/dL (7-18); eGFR NON AFRICAN AMERICAN > 90 mL/min (90-120)
[2018-12-06 06:38] LABS: BASOPHILS 0.9 % (0-2); EOSINOPHILS 5.3 % (0-7); HEMATOCRIT 29.2 % (36.0-48.0); HEMOGLOBIN 9.2 g/dL (12-16); IMMATURE GRANULOCYTES 0.8 % (0-5); LYMPHOCYTES 36.2 % (15-50); MCH 27.5 pg (26.0-34.0); MCHC 31.5 g/dL (31.0-37.0); MCV 87.4 fL (80.0-100.0); MEAN PLATELET VOLUME 10.2 fL (7.4-10.4); MONOCYTES 18.5 % (2-11); NEUTROPHILS 38.3 % (40-80); PLATELET COUNT 740 10x3/uL (130-400); RBC 3.34 10x6/uL (4.00-5.40); RDW 17.3 % (11.5-14.5); WBC 14.2 10x3/uL (4.8-10.8)
[2018-12-06 08:00] VITALS: BP 121/65
[2018-12-06 09:03] LABS: PLATELET ESTIMATE INCREASED
[2018-12-06 09:04] LABS: ANISOCYTOSIS OCC; POLYCHROMASIA OCC; ROULEAUX OCC
--- NOTE | 2018-12-06 14:55 | NUR ---
CARE TEAM MEETING: PATIENT PROGRESSING IN THERAPY. SHE IS NEW TO UNIT AND WILL BE RA AT NEXT MEETING. WILL CONTINUE TO FOLLOW WITH PATIENT.
[2018-12-06 20:40] VITALS: BP 121/50
--- NOTE | 2018-12-07 04:37 | NUR ---
PT IN BED LOWEST POSITION, EYES CLOSED, AROUSES EASILY TO VOICE, NO NEEDS NOTED, RESPIRATIONS EVEN AND UNLABORED, FLUIDS AND CALL LIGHT WITHIN REACH
[2018-12-07 08:00] VITALS: BP 111/55
--- NOTE | 2018-12-07 08:00 | NUR ---
SHIFT ASSMT COMPLETED.DENIES NEEDS.
--- NOTE | 2018-12-07 12:45 | NUR ---
NURA REMOVED FROM INCISION.SITE STERI STRIPPED.JOSIAH WELL.
--- NOTE | 2018-12-07 14:45 | NUR ---
PATIENT DISCHARGING HOME IN AM. SHE HAS DECLINED HOME HEALTH AT THIS TIME. NO NEW DME NEEDED AT THIS TIME. DR. VERONIKA GIRARD 12/12/18 @ 10:30. PATIENT CHOICE FORM AND IMFM FORMS SIGNED, COPY GIVEN TO PATIENT. DISCHARGE INSTRUCTIONS WITH FIM DATA WILL BE FAXED TO PCP AND HER INSURANCE ( SARAH MITCHELL CM [facility] , AUTH. # [id number] FAX ) WILL CONTINUE TO FOLLOW WITH PATIENT.
[2018-12-07 22:49] VITALS: BP 138/58
--- NOTE | 2018-12-08 00:29 | NUR ---
LATE ENTRY FOR 2129, PT PLEASANT, REQUESTING PRN RENETTA, RECIEVED, BEING D/C'D HOME ON 12/08/18, FLUIDS AND CALL LIGHT WITHIN REACH, NO OTHER NEEDS NOTED
--- NOTE | 2018-12-08 02:57 | NUR ---
PT IN BED LOWEST POSITION, EYES CLOSED AROUSES EASILY TO VOICE, RESPIRATIONS EVEN AND UNLABORED, NO NEEDS NOTED, FLUIDS AND CALL LIGHT WITHIN REACH
[2018-12-08 06:52] LABS: BASOPHILS 1.1 % (0-2); HEMATOCRIT 32.1 % (36.0-48.0); HEMOGLOBIN 9.9 g/dL (12-16); IMMATURE GRANULOCYTES 0.8 % (0-5); LYMPHOCYTES 40.7 % (15-50); MCH 27.3 pg (26.0-34.0); MCHC 30.8 g/dL (31.0-37.0); MCV 88.7 fL (80.0-100.0); MEAN PLATELET VOLUME 10.1 fL (7.4-10.4); MONOCYTES 16.6 % (2-11); NEUTROPHILS 35.8 % (40-80); PLATELET COUNT 780 10x3/uL (130-400); RBC 3.62 10x6/uL (4.00-5.40); WBC 14.2 10x3/uL (4.8-10.8)
[2018-12-08 07:10] LABS: CALC OSMOLALITY 277 mosm/kg (275-300); CALCIUM 9.2 mg/dL (8.5-10.1); CARBON DIOXIDE 31.6 mmol/L (21.0-32.0); CHLORIDE - SERUM 102 mmol/L (98-107); CREATININE - SERUM 0.6 mg/dL (0.6-1.3); GLUCOSE 96 mg/dL (74-106); POTASSIUM - SERUM 4.2 mmol/L (3.5-5.1); SODIUM 140 mmol/L (136-145); UREA NITROGEN 11 mg/dL (7-18); eGFR NON AFRICAN AMERICAN > 90 mL/min (90-120)
[2018-12-08] MEDS ORDERED: HYDROCODON-ACE1 EAC7 PO (07:56)
[2018-12-08] MEDS ORDERED: Duragesic TRANSDERM (07:56)
--- NOTE | 2018-12-08 07:58 | RHP ---
PATIENT: ANY LANDIS MEDICAL RECORD: [id number] ACCOUNT: [id number] LOCATION:[facility] D.1119 : [birth year] ADMISSION DATE: 12/03/18 REHABILITATION HISTORY AND PHYSICAL EXAMINATION POST ADMISSION PHYSICIAN EXAMINATION DATE OF ADMISSION: 12/03/2018. ADMITTING DIAGNOSIS: Disuse myopathy. 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 Delacruz in [place] 3 weeks prior to being transferred to [place] on 11/16/2018. The patient stated she had to return to surgery after initial procedure secondary to bleeding. She presented to [facility] with complaints of a several-day history of increased malaise, shortness of breath, cough, and lethargy. She was found to be hypoxic, diagnosed with left lower lobe pneumonia and UTI. She initially required BiPAP for stabilization. She was transferred to [place] for higher level of care. She initially required BiPAP to keep her sats within normal limits. She had atrial fib, rapid ventricular response, heart rates in the 130s, had a chest tube placed after thoracentesis. She had what was believed to be an abscess drained from the diaphragmatic area. She had a prolonged hospital stay in the ICU. She has now been presented to the medical floor. She has been seen by cardiology, pulmonary, cardiovascular, general surgery, PT and OT. She slowly improved. She continues to require supplemental oxygen, pain control. She has got proximal muscle weakness, deconditioning, debility, impaired mobility, gait disturbance, fall risk, and self-care deficit. These are all barriers to her discharge home. She was independent with mobility and ADLs prior to this hospitalization. She is currently set up for mod assist for ADLs, mod assist for mobility. She lives at home with her significant other and plans to return home after her stay here in the hospital. COMORBIDITIES: In this patient include sepsis, normocytic anemia, electrolyte abnormalities, leukocytosis, hypertension, abscess of the lung, chest tube placement, empyema, pneumonia, anemia, sepsis secondary to hospital-acquired pneumonia, acute hypoxic respiratory failure, lack of a spleen, AFib with rapid ventricular response, immunocompromised state, hypotension, UTI, shortness of breath, acute blood loss anemia, status post transfusion, and debility. PAST MEDICAL HISTORY: Significant for hypertension, constipation, history of tobacco use. PAST SURGICAL HISTORY: Includes splenectomy. ALLERGIES: No known drug allergies. CURRENT MEDICATIONS: Include a fentanyl patch 25 mcg daily, Benadryl 50 mg q.h.s., Floranex 460 mg daily, multivitamin daily. She is on Zoloft 25 mg daily, Diflucan 150 mg daily, Atrovent and ipratropium bromide updrafts. She is on Protonix 40 mg daily, Calmoseptine to apply b.i.d. p.r.n., Xopenex 0.63 mg q.2 hours p.r.n. wheezing, [place] 5/325 one tab q.6 hours p.r.n. She is on enalapril 20 mg b.i.d., budesonide 0.5 mg b.i.d., Tessalon Perles 100 mg t.i.d., and Brovana 15 mcg b.i.d. HABITS: Does have a history of tobacco use. HISTORY AND PHYSICAL [id number] ANY LANDIS FAMILY HISTORY: Noncontributory. SOCIAL HISTORY: The patient hopes to return back home and get back to her prior level of functioning. REVIEW OF SYSTEMS: GENERAL: Does complain of weakness and fatigue. HEENT: Denies cold, cough, or congestion. CARDIOVASCULAR: Denies any chest pain. PHYSICAL EXAMINATION: VITAL SIGNS: Stable, afebrile. GENERAL: A well-developed female, in no acute distress, alert upon exam. HEENT: Normocephalic and atraumatic. Mucosa moist. NECK: Supple. No lymphadenopathy. LUNGS: Clear in upper [place]. She does have decreased breath sounds in the bases. HEART: Regular rate and rhythm. ABDOMEN: Benign. EXTREMITIES: No clubbing, cyanosis or edema. NEUROLOGIC: She does have noted weakness. LABORATORY DATA: White count on the 12/03/2018 was 16.5, H&H 9 and 29, and platelet count was 760. Her INR is 1.16. Her sodium is 139, potassium 3.9, BUN and creatinine of 7 and 0.5, and blood sugar was noted to be 96. 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 The patient has potential to make improvement. We instituted the following multidisciplinary therapies including, but not limited to physical, occupational, respiratory, speech, nutritional services, prosthetics and orthotics. Given her complex medical condition and risks for more complications, rehabilitation services cannot be provided at a low level of care such as detention facility. PLAN: 1. Admit to [facility] rehab for an intensive inpatient therapy to include the following disciplines: A. Physical therapy to improve gait, all transfer skills and bed mobility to a modified independent level. B. Occupational therapy to improve activities of daily living to a modified independent level. C. Case management to assist with discharge planning and placement options. D. Nutrition to assist with nutritional needs. E. Rehabilitation nursing to assist in monitoring the patient's underlying medical conditions and to assist with any type of bowel and bladder management. 2. The patient's current medications and medical care will be continued. 3. The patient will be placed on standard fall precautions. 4. The patient's estimated length of stay is approximately 7-10 days. 5. We will discuss this patient during care team staff meeting this week, also again in the a.m. TRANSINT:[id number] Voice Confirmation ID: [id number] DOCUMENT ID: [id number] HISTORY AND PHYSICAL [id number] ANY LANDIS notes whether there has been none or any medical/functional change since admission: - No change since pre-admission screen. DAYRON attests patient continues to be appropriate for IRF: - Continues to be appropriate. TESS SALGADO MD at 0758 CC: [id number] DICTATION DATE: 12/04/18 0855 UNEMPLOYMENT SPECIALIST: 12/04/18 0919 ADM IN [facility] [address] [place] [id number]
[2018-12-08 08:31] VITALS: BP 112/44
--- NOTE | 2018-12-08 09:07 | NUR ---
SITTING UP IN CHAIR IN ROOM. DENIES NEEDS CALL LIGHT IN REACH
--- NOTE | 2018-12-08 12:37 | NUR ---
DC HOME WITH ALL PERSONAL BELONGINGS. REVIEWED MEDS, F/U APPTS AND S/S OF WOUND INFECTION. MEDS CALLED IN TO PHARMACY. LEFT FLOOR IN WC. WITH PT.
== END 2018-12-08 12:37 | disposition home or self-care (01) | DRG 91 ==
LOC: D.REHAB 18:25
PROVIDERS: ADMIT Emergency Medicine; ATTEND Emergency Medicine
DX: G72.89 Other specified myopathies (principal); A41.9 Sepsis, unspecified organism; J96.01 Acute respiratory failure with hypoxia; J18.9 Pneumonia, unspecified organism; J86.9 Pyothorax without fistula; D62 Acute posthemorrhagic anemia; N39.0 Urinary tract infection, site not specified; J98.11 Atelectasis; D64.9 Anemia, unspecified; R53.81 Other malaise; I95.9 Hypotension, unspecified; I48.91 Unspecified atrial fibrillation; Y95 Nosocomial condition; D72.829 Elevated white blood cell count, unspecified; E87.8 Other disorders of electrolyte and fluid balance, not elsewhere classified; E83.42 Hypomagnesemia; E83.51 Hypocalcemia; E87.6 Hypokalemia; I10 Essential (primary) hypertension; R00.0 Tachycardia, unspecified; J44.9 Chronic obstructive pulmonary disease, unspecified

== ENCOUNTER → 2018-12-20 12:46 | Outpatient (CLI) | payer MEDICARE, MEDICAID ==
[2018-12-04 11:03] VITALS: BMI 28.3
[~2018-12-20 12:46] MED LIST changes: +Duragesic TRANSDERM
== END | disposition home or self-care (01) ==
LOC: D.LAB 12:46
PROVIDERS: ATTEND Thoracic Surgery (Cardiothoracic Vascular Surgery)
DX: J85.2 Abscess of lung without pneumonia (principal)

== ENCOUNTER → 2019-01-11 09:49 | Outpatient (CLI) | payer MEDICARE, MEDICAID ==
[2018-12-04 11:03] VITALS: BMI 28.3
== END | disposition home or self-care (01) ==
LOC: D.CT 09:49
PROVIDERS: ATTEND Surgery
DX: J86.9 Pyothorax without fistula (principal)

== ENCOUNTER → 2019-06-19 12:50 | Outpatient (CLI) | payer MEDICARE, MEDICAID ==
[2018-12-04 11:03] VITALS: BMI 28.3
== END | disposition home or self-care (01) ==
LOC: D.RT 12:50
PROVIDERS: ATTEND Internal Medicine Pulmonary Disease
DX: J44.9 Chronic obstructive pulmonary disease, unspecified (principal)